=== PATIENT | female | born 1940 | race Caucasian/White ===

== ENCOUNTER 2018-03-30 06:44 | Inpatient (IN) | payer MEDICARE ==
[2018-03-30] MEDS ORDERED: NS 0.9% 1000 ML* 1,000 ML IV ONE (07:28)
[2018-03-30] MEDS ORDERED: Morphine VIAL* 4 MG/ML VIAL (1 ml vial) IV ONE (07:29)
[2018-03-30 08:04] LABS: ABS Basophils 0 10^3/ul (0-0.2); ABS Eosinophils 0 10^3/ul (0-0.6); ABS Lymphocytes 0.9 10^3/ul (1.0-4.8); ABS Monocytes 0.9 10^3/ul (0-0.8); ABS Neutrophils 7.5 10^3/ul (1.5-7.7); ABS Nucleated RBC 0 10^3/ul; Eosinophil % 0.3 % (0-6); Hematocrit 39 % (35-47); Hemoglobin 13.1 g/dl (12.0-16.0); Lymphocyte % 9.8 % (25-47); Mean Corpuscular HGB Conc 34 g/dl (31-36); Mean Corpuscular Hemoglobin 32 pg (27-31); Mean Corpuscular Volume 95 fL (80-97); Mean Platelet Volume 7.8 um3 (7.4-10.4); Nucleated Red Blood Cells % 0; Platelet Count 177 10^3/ul (150-450); Red Blood Count 4.13 10^6/ul (4.00-5.40); Red Cell Distribution Width 14 % (10.5-15); White Blood Count 9.4 10^3/ul (3.5-10.8)
[2018-03-30 08:21] LABS: INR 2.59 (0.77-1.02)
[2018-03-30 08:24] LABS: EGFR Non-African American 72.7 (>60)
[2018-03-30] MEDS ORDERED: Iohexol 350* (CONTRAST) 500 ML MDV IV ONE (08:50)
--- NOTE | 2018-03-30 09:00 | RAD ---
HISTORY: chest pain COMPARISONS: None VIEWS: 1: frontal portable view of the chest at 8:40 AM FINDINGS: LINES AND TUBES: None. CARDIOMEDIASTINAL SILHOUETTE: The cardiac silhouette is mildly enlarged. The cardiomediastinal silhouette is otherwise normal for portable technique. PLEURA: The costophrenic angles are sharp. No pleural abnormalities are noted. LUNG PARENCHYMA: The lungs are clear. ABDOMEN: The upper abdomen is clear. There is no subphrenic gas. BONES AND SOFT TISSUES: No bone or soft tissue abnormalities are noted. Surgical clips are noted in the left axilla. IMPRESSION: MILD CARDIOMEGALY
[2018-03-30] MEDS ORDERED: Nitroglycerin TAB 0.4 MG* 0.4 MG TAB SL ONE (09:06)
[2018-03-30] MEDS ORDERED: Lidocaine 2% VISCOUS* 15 ML UDC PO ONE (09:43)
[2018-03-30] MEDS ORDERED: Al Hydrox/Mg Hydrox/Simet LIQ* 30 ML UDC PO ONE (09:43)
[2018-03-30 09:45] LABS: Urine Appearance Clear; Urine Blood 2+ (Negative); Urine Color Yellow; Urine Ketones Negative (Negative); Urine Protein Negative (Negative); Urine Red Blood Cell 1+(3-5/hpf) (Absent); Urine Urobilinogen Negative (Negative); Urine White Blood Cell Trace(0-5/hpf) (Absent)
--- NOTE | 2018-03-30 09:56 | RAD ---
INDICATION: Chest pain. Short of breath. Evaluate for pulmonary embolus. COMPARISON: Chest x-ray March 30, 2018 TECHNIQUE: Axial source images were obtained from the thoracic inlet to the hemidiaphragms following administration of [address] angiographic technique was utilized. Coronal and sagittal reconstructed images were acquired. CHEST FINDINGS: Neck/thyroid: There is thyromegaly. Chest wall: There are no acute abnormalities of the bony thorax or chest wall. There is spondylitic change with kyphosis. There is left mastectomy with axillary dissection There is no supraclavicular, infraclavicular, or axillary lymphadenopathy. Lungs : There is mild bibasilar atelectasis or scarring with mild coarsening of interstitium likely reflecting chronic change. There are no endobronchial lesions. Cardiomediastinal structures: There is no CT evidence of acute pulmonary embolic disease. The heart is mildly enlarged. There is no pericardial effusion. There is no evidence of aortic aneurysm or dissection. There are atherosclerotic changes with vascular ectasia There is no mediastinal or hilar adenopathy. The esophagus appears normal. Pleura : There is a trace left-sided pleural effusion. Other: Limited views the upper abdomen show a large hiatal hernia. There are incompletely characterized low-density hepatic lesions for which nonemergent follow-up ultrasonography is recommended. There are bilateral parapelvic cysts. IMPRESSION: 1. No CT evidence of acute pulmonary embolic disease. 2. Mild chronic lung findings with trace left-sided pleural effusion. 3. Thyromegaly 4. Left mastectomy with axillary dissection 5. Mild cardiomegaly. 6. Large hiatal hernia. 7. Indeterminate hepatic lesions (see above). Parapelvic cysts.
[2018-03-30] MEDS ORDERED: Gaviscon CHEW TAB* 1 TAB PO PRN (11:12)
[2018-03-30] MEDS ORDERED: Zolpidem TAB* 5 MG PO PRN (11:12)
[2018-03-30] MEDS ORDERED: Acetaminophen TAB* 325 MG PO PRN (11:13)
[2018-03-30] MEDS ORDERED: Morphine VIAL* 4 MG/ML VIAL (1 ml vial) IV PRN (11:13)
--- NOTE | 2018-03-30 11:47 | ED ---
Alesha Guajardo Tenzin, scribed for Dejuan Wang MD on 03/30/18 at 0733 . HPI Chest Pain - HPI Summary HPI Summary: Pt is a 77 years old female BIBA complaining of chest pressure since last night at 20:00. Pt notes that the pain is located in her mid-chest and does not radiate. Pt rates the pain at 8/10 in severity during onset but currently rates it at 5/10 after taking 2 mg Morphine in the ambulance. She also complaints of SOB at baseline when she walks up the stairs and currently at the ED "pull of breathe to complete her sentence". Pt denies feeling nauseas, diaphoresis, fever , chills, dysuria and incontinence. Pt notes that prior to the onset she was eating salmon and she attributed the chest pain to her normal experience of acid reflux. She noted that she took GI meds but it didn't help alleviate her pain. She notes that she took ibuprofen last night but it didn't help either with her chest pain. Pt is taking Coumadin daily with past MHx of PE. She reports that currently she is also taking antibiotics for her bladder infection. Pt declined aspirin. - History of Current Complaint Chief Complaint: EDShortnessOfBreath Time Seen by Provider: 03/30/18 07:14 Hx Obtained From: Patient Timing: Constant Initial Severity: Severe Current Severity: Mild Pain Intensity: 5 Pain Scale Used: 0-10 Numeric Chest Pain Location: Discrete at: - Mid upper chest. Chest Pain Radiates: No - Allergy/Home Medications Allergies/Adverse Reactions: Allergies Allergy/AdvReac Type Severity Reaction Status Date / Time No Known Allergies Allergy Verified 03/30/18 06:53 Home Medications: Home Medications Famotidine TAB* [Pepcid 20 MG TAB*] 40 mg PO DAILY 03/30/18 [History Confirmed 03/30/18] Gaviscon CHEW TAB* 1 tab.chew PO Q6H PRN 03/30/18 [History Confirmed 03/30/18] Nitrofurantoin Macrocrystals* [Macrodantin 100 mg*] 100 mg PO BID 03/30/18 [ History Confirmed 03/30/18] Warfarin TAB(*) [Coumadin TAB(*)] 5 mg PO SUMOWEFRSA 03/30/18 [History Confirmed 03/30/18] Warfarin TAB(*) [Coumadin TAB(*)] 7.5 mg PO TUTH 03/30/18 [History Confirmed ] Zolpidem TAB* [Ambien TAB*] 5 mg PO BEDTIME PRN 03/30/18 [History Confirmed ] PMH/Surg Hx/FS Hx/Imm Hx Cardiovascular History: Reports: Other Cardiovascular Problems/Disorders - Hx of Paroxysmal atrial fibrillation Denies: Hx Hypertension Respiratory History: Reports: Hx Pulmonary Embolism - Cancer History Cancer Type, Location and Year: Mastectomy. Infectious Disease History: No Infectious Disease History: Denies: Traveled Outside the [place] in Last 30 Days - Family History Known Family History: Positive: Cardiac Disease - Social History Alcohol Use: Occasionally Substance Use Type: Reports: None Smoking Status (MU): Never Smoked Tobacco Review of Systems Negative: Fever, Chills, Skin Diaphoresis Positive: Chest Pain Positive: Shortness Of Breath - at baseline when she walks up the stairs. Negative: Nausea Negative: dysuria, incontinence All Other Systems Reviewed And Are Negative: Yes Physical Exam - Summary Physical Exam Summary: General: well-appearing, no pain distress Skin: warm, color reflects adequate perfusion, dry Head: normal Eyes: EOMI, RODY ENT: normal Neck: supple, nontender Respiratory: CTA, breath sounds present Cardiovascular: RRR Abdomen: soft, nontender Bowel: present Musculoskeletal: normal, strength/ROM intact Neurological: sensory/motor intact, A&O x3 Psychological: affect/mood appropriate Triage Information Reviewed: Yes Vital Signs On Initial Exam: Initial Vitals Resp BP 19 141/82 03/30/18 06:49 03/30/18 06:49 Vital Signs Reviewed: Yes Diagnostics - Vital Signs Vital Signs Temp Pulse Resp BP Pulse Ox 03/30/18 06:53 98.8 F 91 18 141/82 92 03/30/18 06:51 95 20 93 03/30/18 06:49 19 141/82 - Laboratory Lab Results: Lab Results 03/30/18 03/30/18 03/30/18 Range/Units 07:54 07:54 07:54 WBC 9.4 (3.5-10.8) 10^3/ul RBC 4.13 (4.00-5.40) 10^6/ul Hgb 13.1 (12.0-16.0) g/dl Hct 39 (35-47) % MCV 95 (80-97) fL MCH 32 H (27-31) pg MCHC 34 (31-36) g/dl RDW 14 (10.5-15) % Plt Count 177 (150-450) 10^3/ul MPV 7.8 (7.4-10.4) um3 Neut % (Auto) 80.2 (38-83) % Lymph % (Auto) 9.8 L (25-47) % [place] % (Auto) 9.3 H (0-7) % Eos % (Auto) 0.3 (0-6) % Baso % (Auto) 0.4 (0-2) % Absolute Neuts (auto) 7.5 (1.5-7.7) 10^3/ul Absolute Lymphs (auto) 0.9 L (1.0-4.8) 10^3/ul Absolute Monos (auto) 0.9 H (0-0.8) 10^3/ul Absolute Eos (auto) 0 (0-0.6) 10^3/ul Absolute Basos (auto) 0 (0-0.2) 10^3/ul Absolute Nucleated RBC 0 10^3/ul Nucleated RBC % 0 INR (Anticoag Therapy) (0.77-1.02) APTT (26.0-36.3) seconds Sodium 140 (139-145) mmol/L Potassium 4.1 (3.5-5.0) mmol/L Chloride 105 (101-111) mmol/L Carbon Dioxide 30 (22-32) mmol/L Anion Gap 5 (2-11) mmol/L BUN 18 (6-24) mg/dL Creatinine 0.77 (0.51-0.95) mg/dL Est GFR ( Amer) 93.5 (>60) Est GFR (Non-Af Amer) 72.7 (>60) BUN/Creatinine Ratio 23.4 H (8-20) Glucose 114 H (70-100) mg/dL Lactic Acid 0.9 (0.5-2.0) mmol/L Calcium 9.1 (8.6-10.3) mg/dL Magnesium 2.1 (1.9-2.7) mg/dL Total Bilirubin 0.50 (0.2-1.0) mg/dL AST 20 (13-39) U/L ALT 16 (7-52) U/L Alkaline Phosphatase 54 (34-104) U/L Total Creatine Kinase 231 H (10-223) U/L CK-MB (CK-2) 4.5 (0.6-6.3) ng/mL Troponin I 0.01 (<0.04) ng/mL C-Reactive Protein 46.98 H (< 5.00) mg/L B-Natriuretic Peptide ( - 100) pg/mL Total Protein 6.6 (6.4-8.9) g/dL Albumin 3.7 (3.2-5.2) g/dL Globulin 2.9 (2-4) g/dL Albumin/Globulin Ratio 1.3 (1-3) Lipase 24 (11.0-82.0) U/L TSH 1.70 (0.34-5.60) mcIU/mL Urine Color Urine Appearance Urine pH (5-9) Ur Specific [place] (1.010-1.030) Urine Protein (Negative) Urine Ketones (Negative) Urine Blood (Negative) Urine Nitrate (Negative) Urine Bilirubin (Negative) Urine Urobilinogen (Negative) Ur Leukocyte Esterase (Negative) Urine WBC (Auto) (Absent) Urine RBC (Auto) (Absent) Ur Squamous Epith Cells (Absent) Urine Bacteria (Absent) Urine Glucose (Negative) 03/30/18 03/30/18 03/30/18 Range/Units 07:54 07:54 09:30 WBC (3.5-10.8) 10^3/ul RBC (4.00-5.40) 10^6/ul Hgb (12.0-16.0) g/dl Hct (35-47) % MCV (80-97) fL MCH (27-31) pg MCHC (31-36) g/dl RDW (10.5-15) % Plt Count (150-450) 10^3/ul MPV (7.4-10.4) um3 Neut % (Auto) (38-83) % Lymph % (Auto) (25-47) % [place] % (Auto) (0-7) % Eos % (Auto) (0-6) % Baso % (Auto) (0-2) % Absolute Neuts (auto) (1.5-7.7) 10^3/ul Absolute Lymphs (auto) (1.0-4.8) 10^3/ul Absolute Monos (auto) (0-0.8) 10^3/ul Absolute Eos (auto) (0-0.6) 10^3/ul Absolute Basos (auto) (0-0.2) 10^3/ul Absolute Nucleated RBC 10^3/ul Nucleated RBC % INR (Anticoag Therapy) 2.59 H (0.77-1.02) APTT 39.1 H (26.0-36.3) seconds Sodium (139-145) mmol/L Potassium (3.5-5.0) mmol/L Chloride (101-111) mmol/L Carbon Dioxide (22-32) mmol/L Anion Gap (2-11) mmol/L BUN (6-24) mg/dL Creatinine (0.51-0.95) mg/dL Est GFR ( Amer) (>60) Est GFR (Non-Af Amer) (>60) BUN/Creatinine Ratio (8-20) Glucose (70-100) mg/dL Lactic Acid (0.5-2.0) mmol/L Calcium (8.6-10.3) mg/dL Magnesium (1.9-2.7) mg/dL Total Bilirubin (0.2-1.0) mg/dL AST (13-39) U/L ALT (7-52) U/L Alkaline Phosphatase (34-104) U/L Total Creatine Kinase (10-223) U/L CK-MB (CK-2) (0.6-6.3) ng/mL Troponin I (<0.04) ng/mL C-Reactive Protein (< 5.00) mg/L B-Natriuretic Peptide 60 ( - 100) pg/mL Total Protein (6.4-8.9) g/dL Albumin (3.2-5.2) g/dL Globulin (2-4) g/dL Albumin/Globulin Ratio (1-3) Lipase (11.0-82.0) U/L TSH (0.34-5.60) mcIU/mL Urine Color Yellow Urine Appearance Clear Urine pH 6.0 (5-9) Ur Specific [place] 1.010 (1.010-1.030) Urine Protein Negative (Negative) Urine Ketones Negative (Negative) Urine Blood 2+ A (Negative) Urine Nitrate Negative (Negative) Urine Bilirubin Negative (Negative) Urine Urobilinogen Negative (Negative) Ur Leukocyte Esterase Trace A (Negative) Urine WBC (Auto) Trace(0-5/hpf) (Absent) Urine RBC (Auto) 1+(3-5/hpf) A (Absent) Ur Squamous Epith Cells Present A (Absent) Urine Bacteria Absent (Absent) Urine Glucose Negative (Negative) 03/30/18 Range/Units 11:12 WBC (3.5-10.8) 10^3/ul RBC (4.00-5.40) 10^6/ul Hgb (12.0-16.0) g/dl Hct (35-47) % MCV (80-97) fL MCH (27-31) pg MCHC (31-36) g/dl RDW (10.5-15) % Plt Count (150-450) 10^3/ul MPV (7.4-10.4) um3 Neut % (Auto) (38-83) % Lymph % (Auto) (25-47) % [place] % (Auto) (0-7) % Eos % (Auto) (0-6) % Baso % (Auto) (0-2) % Absolute Neuts (auto) (1.5-7.7) 10^3/ul Absolute Lymphs (auto) (1.0-4.8) 10^3/ul Absolute Monos (auto) (0-0.8) 10^3/ul Absolute Eos (auto) (0-0.6) 10^3/ul Absolute Basos (auto) (0-0.2) 10^3/ul Absolute Nucleated RBC 10^3/ul Nucleated RBC % INR (Anticoag Therapy) (0.77-1.02) APTT (26.0-36.3) seconds Sodium (139-145) mmol/L Potassium (3.5-5.0) mmol/L Chloride (101-111) mmol/L Carbon Dioxide (22-32) mmol/L Anion Gap (2-11) mmol/L BUN (6-24) mg/dL Creatinine (0.51-0.95) mg/dL Est GFR ( Amer) (>60) Est GFR (Non-Af Amer) (>60) BUN/Creatinine Ratio (8-20) Glucose (70-100) mg/dL Lactic Acid (0.5-2.0) mmol/L Calcium (8.6-10.3) mg/dL Magnesium (1.9-2.7) mg/dL Total Bilirubin (0.2-1.0) mg/dL AST (13-39) U/L ALT (7-52) U/L Alkaline Phosphatase (34-104) U/L Total Creatine Kinase (10-223) U/L CK-MB (CK-2) (0.6-6.3) ng/mL Troponin I 0.01 (<0.04) ng/mL C-Reactive Protein (< 5.00) mg/L B-Natriuretic Peptide ( - 100) pg/mL Total Protein (6.4-8.9) g/dL Albumin (3.2-5.2) g/dL Globulin (2-4) g/dL Albumin/Globulin Ratio (1-3) Lipase (11.0-82.0) U/L TSH (0.34-5.60) mcIU/mL Urine Color Urine Appearance Urine pH (5-9) Ur Specific [place] (1.010-1.030) Urine Protein (Negative) Urine Ketones (Negative) Urine Blood (Negative) Urine Nitrate (Negative) Urine Bilirubin (Negative) Urine Urobilinogen (Negative) Ur Leukocyte Esterase (Negative) Urine WBC (Auto) (Absent) Urine RBC (Auto) (Absent) Ur Squamous Epith Cells (Absent) Urine Bacteria (Absent) Urine Glucose (Negative) Result Diagrams: 03/30/18 07:54 03/30/18 07:54 Lab Statement: Any lab studies that have been ordered have been reviewed, and results considered in the medical decision making process. - Radiology CHEST XRAY Radiology Interpretation Completed By: Radiologist - Impression: MILD CARDIOMEGALY. Dr. Wang reviewed the report. - CT CHEST/THORAX CTA CT Interpretation Completed By: Radiologist - IMPRESSION: 1. No CT evidence of acute pulmonary embolic disease. 2. Mild chronic lung findings with trace left-sided pleural effusion. 3. Thyromegaly 4. Left mastectomy with axillary dissection 5. Mild cardiomegaly. 6. Large hiatal hernia. 7. Indeterminate hepatic lesions (see above). Parapelvic cysts. Dr. Wang reviewed the report. - EKG 7:56 Cardiac Rate: NL - at 84 BPM EKG Rhythm: Sinus Rhythm Ectopy: None EKG Interpretation: Anterior ST elevation due to LVH Re-Evaluation - Re-Evaluation First Eval Change: Unchanged Comment: Pt is still having pain. Chest Pain Course/Dx - Course Course Of Treatment: ADMIT HOSPITALIST. CRITICAL CARE TIME LESS THAN 30 MINUTES - Diagnoses Provider Diagnoses: Chest pain - Provider Notifications Discussed Care Of Patient With: Kim Nicholson Time Discussed With Above Provider: 09:30 - She agreed to admit the pt. Discharge - Sign-Out/Discharge Documenting (check all that apply): Discharge/Admit/Transfer - Discharge Plan Condition: Stable Disposition: ADMITTED TO [facility] - Billing Disposition and Condition Condition: STABLE Disposition: Admitted to [facility] The documentation as recorded by the Alesha nye Tenzin accurately reflects the service I personally performed and the decisions made by me, Dejuan Wang MD.
[2018-03-30] MEDS: Aspirin EC TAB* 81 MG TAB.EC PO SCH (13:37)
--- NOTE | 2018-03-30 14:23 | HP ---
CC: Dr. Oswaldo Guo, [place], phone number [phone] HISTORY AND PHYSICAL: DATE OF ADMISSION: 03/30/18 TIME OF EVALUATION: 10:40 a.m. PRIMARY CARE PROVIDER: Dr. Oswaldo Guo. CHIEF COMPLAINT: Chest pain. HISTORY OF PRESENT ILLNESS: Ms. Diaz is a 77-year-old lady with past medical history of breast cancer, pulmonary embolism, who presented to the emergency room with complaints of chest pain. She states she was in her usual state of health until yesterday around 8 p.m., when she developed retrosternal chest pain, 5/10 intensity, with no radiation. Initially she thought this could be related to eating salmon for dinner, so she took some Gaviscon with no improvement. There are no alleviating factors. The patient states that the pain gets worse with leaning forward and with deep inspiration. She also developed urinary symptoms this past week and started taking Nitrofurantoin. She denies fever, dyspnea, cough, nausea, vomiting, dizziness, lightheadedness, or other complaints. PAST MEDICAL HISTORY: 1. Breast cancer, status post lumpectomy, radiation, and chemo in 1999 and recurrence of disease, with left mastectomy in 2016. 2. 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 The patient was switched from warfarin to aspirin and she had recurrence of pulmonary embolism in 2009, so now she is on anticoagulation for life. 3. Status post bilateral hip replacements. MEDICATION LIST: 1. Famotidine 40 mg p.o. daily. 2. Gaviscon 1 tablet chewable q.6 hours p.r.n. dyspepsia. 3. Nitrofurantoin 100 mg p.o. b.i.d. 4. Warfarin 7.5 mg p.o. on Tuesdays, and 5 mg on Sundays, Mondays, Wednesdays, Fridays, and Saturdays. 5. Zolpidem 5 mg p.o. at bedtime as needed for sleep. ALLERGIES: No known drug allergies. FAMILY HISTORY: Patient's sister has a history of CAD with 5 stents in her 60s. Grandfather and grandmother had a history of heart attack. SOCIAL HISTORY: She denies tobacco use. She drinks a glass of wine a day. She is a retired cardiac nurse and she lives in [place], [place], but she spends summertime in a cottage in [place]. REVIEW OF SYSTEMS: A 14-point review of systems was performed and all the pertinent negatives are in the HPI. PHYSICAL EXAMINATION GENERAL: The patient is an elderly lady lying in the ED stretcher, in no acute distress. VITAL SIGNS: Temperature 98.4, heart rate is 79, respiratory rate is 18, oxygen saturation is 92% on room air, blood pressure is 112/68. HEENT: Pupils are equal. Moist mucous membranes. CHEST: Breath sounds bilaterally with left base crackles and possible pleural rub. CVS: Normal S1, S2. Regular rate and rhythm with possible pericardial rub. ABDOMEN: Soft, bowel sounds are present. EXTREMITIES: No edema. NEUROLOGIC: He is alert and oriented x3. Able to mold mover all 4 extremities. LABORATORY AND IMAGING DATA: The patient had a CBC that showed WBC of 9.4, hemoglobin of 13.1, hematocrit of 39, platelets of 177 with 80% neutrophils. ESR was 46. INR is 2.59. Chemistry showed a sodium of 140, potassium of 4.1, chloride of 105, bicarb of 30, BUN of 18, creatinine of 0.77, glucose of 114, lactic acid of 0.9, calcium of 9.1. Magnesium of 2.1. LFTs are normal. CPK is slightly elevated of 231. CRP 46.98 and first troponin is negative. Chest x-ray, mild cardiomegaly. CTA of the chest showed no evidence of pulmonary embolic disease, mild chronic lung findings with trace left-sided pleural effusion, thyromegaly, left mastectomy with axillary dissection, mild cardiomegaly, large hiatal hernia, and low density hepatic lesions, for which non-emergent followup ultrasonography is recommended. EKG: Normal sinus rhythm at 84 beats per minute with ST elevations in V1, V4. ASSESSMENT AND PLAN: Ms. Diaz is a 77-year-old lady with past medical history of breast cancer, pulmonary embolism, who presented to the emergency room with complaints of chest pain. 1. Chest pain, rule out acute coronary syndrome, rule out pericarditis. The patient's chest pain is retrosternal, worse when leaning forward and with deep inspiration and I suspect this may be secondary to pleurisy including pericarditis. She will be admitted to the telemetry floor and she will have serial troponins. She does have a family history of coronary artery disease and if troponins are negative, she will undergo an exercise Myoview stress test, but I suspect with the findings on her physical examination, the ST elevations on her EKG, her elevated ESR and CRP, pericarditis may be the most likely diagnosis. She is going to receive Toradol for now to see if she experienced any relief, but depending on the findings of her echo she may benefit of NSAIDs and colchicine. 2. History of pulmonary embolism. The patient will be continued on her warfarin. 3. DVT prophylaxis: The patient has a score of 8 and she will be continued on warfarin and she will have SCDs. 4. Code status is full. TIME SPENT: Approximately 45 minutes was spent with patient interview, medical records review, physical examination to complete this admission, more than half of this time was spent [id number] with the patient in coordination of care. [id number]/CPS #: [id number]
[2018-03-30] MEDS: Ketorolac INJ* 15 MG/ML 1 ML VIAL IV PUSH PRN ×2 (15:34→23:51)
[2018-03-30] MEDS ORDERED: Warfarin TAB(*) 5 MG PO SCH (17:00)
--- NOTE | 2018-03-30 18:09 | ECHO ---
Patient: NAWAF BATES [facility] Rec#: [id number] : 1940 Date: 03/30/2018 Age: 77y Height: 167.64 cm / 66.0 in Weight: 70.31 kg / 155.0 lbs Sex: F BSA: 1.79 Room#: 439 Admit Date#: 03/30/2018 Type: Inpatient Referring: Kim Puri MD Reading: Anne Lawrence MD Devil Dog: Daja Escalante [facility] Transthoracic Echocardiogram Indication: CP BP: 112/68 HR: 81 Rhythm: NSR Findings History: Left pleural effusion, s/p left mastectomy. Technical Comments: The study quality is good. Completed at 1500. Left Ventricle: The left ventricular chamber size is normal. Global left ventricular wall motion and contractility are within normal limits. There is normal left ventricular systolic function. The estimated ejection fraction is 60-65%. Abnormal left ventricular diastolic function is observed. Left Atrium: The left atrium is moderately dilated. Right Ventricle: The right ventricular cavity size is normal. The right ventricular global systolic function is normal. Right Atrium: The right atrial cavity size is normal. Aortic Valve: The aortic valve is trileaflet. There is a trace of aortic regurgitation. There is no evidence of aortic stenosis. Mitral Valve: The mitral valve leaflets are mildly thickened. There is mild to moderate mitral regurgitation. The mitral regurgitant jet is laterally directed. There is no evidence of mitral stenosis. Tricuspid Valve: The tricuspid valve leaflets are normal. There is moderate to severe tricuspid regurgitation. The tricuspid regurgitant jet is directed toward the septum. The right ventricular systolic pressure is estimated at 56 mmHg. There is evidence of moderate to severe pulmonary hypertension. There is no tricuspid stenosis. Pulmonic Valve: The pulmonic valve appears normal. There is trace to mild pulmonic regurgitation. There is no pulmonic stenosis. Pericardium: The pericardium appears normal. Aorta: There is no dilatation of the ascending aorta. There is no dilatation of the aortic arch. There is no dilation of the aortic root. Pulmonary Artery: The main pulmonary artery appears normal. Venous: The inferior vena cava is dilated. There is an approximate 50% respiratory change in the inferior vena cava dimension. Conclusions Global left ventricular wall motion and contractility are within normal limits. The estimated ejection fraction is 60-65%. Abnormal left ventricular diastolic function is observed. The right ventricular global systolic function is normal. There is a trace of aortic regurgitation. There is mild to moderate mitral regurgitation. There is moderate to severe tricuspid regurgitation. There is evidence of moderate to severe pulmonary hypertension estimated at 56 mmHg. No prior echo to compare. Measurements Name Value Normal Range RVIDd (AP) 2D 2.9 cm (0.9 - 2.6) RVDdMajor (2D) 4 cm (2.2 - 4.4) RAd ISD 4CH 5.2 cm (3.4 - 4.9) RA (A4C)W 3.5 cm (2.9 - 4.6) IVSd (2D) 0.9 cm (0.6 - 1) LVPWd (2D) 0.7 cm (0.6 - 1) LVIDd (2D) 3.6 cm (3.6 - 5.4) LVIDs (2D) 2.4 cm - LV FS (2D) 32 % (25 - 45) Aortic Annulus 1.9 cm (1.4 - 2.6) Ao root diameter (2D) 3.1 cm (2.1 - 3.5) Ascending Ao 3.2 cm (2.1 - 3.4) Aortic arch 2.8 cm (1.8 - 3.4) Descending Ao 0.6 cm - LA dimension (AP) 2D 4.9 cm (2.3 - 3.8) LAd ISD 4CH 5.5 cm (2.9 - 5.3) LA ISD 4CH W 4 cm (2.5 - 4.5) Name Value Normal Range LA ESV SP 4CH (A/L) 57 ml - LA ESV SP 2CH (A/L) 60 ml - LA ESV BP (A/L) 60 ml - LA ESV BP (A/L) index 33.42 ml/m2 - LA ESV SP 4CH (MOD) 53 ml - LA ESV SP 2CH (MOD) 59 ml - Name Value Normal Range MV E-wave Vmax 0.8 m/sec - MV deceleration time 205 msec - MV A-wave Vmax 0.6 m/sec - MV E:A ratio 1.27 ratio - LV septal e' Vmax 0.09 m/sec - LV lateral e' Vmax 0.09 m/sec - LV E:e' septal ratio 8.89 ratio - LV E:e' lateral ratio 8.89 ratio - Name Value Normal Range AV Vmax 1.8 m/sec - AV VTI 37.9 cm - AV peak gradient 12.18 mmHg - AV mean gradient 6.69 mmHg - LVOT Vmax 1.1 m/sec - LVOT VTI 24.6 cm - LVOT peak gradient 4.76 mmHg - LVOT mean gradient 2.41 mmHg - Name Value Normal Range MR Vmax 4.1 m/sec - MR VTI 148.62 cm - Name Value Normal Range TR Vmax 3.5 m/sec - TR peak gradient 48 mmHg - RAP 8 mmHg - RVSP 56 mmHg - IVC diameter 2.3 cm - Name Value Normal Range PV Vmax 0.9 m/sec - PV peak gradient 3.6 mmHg -
[2018-03-30] MEDS: Nitrofurantoin Macrocrystals* 100 MG CAP PO SCH (21:39)
[2018-03-31 06:05] LABS: ABS Basophils 0 10^3/ul (0-0.2); ABS Eosinophils 0.1 10^3/ul (0-0.6); ABS Lymphocytes 1.8 10^3/ul (1.0-4.8); ABS Monocytes 0.8 10^3/ul (0-0.8); ABS Neutrophils 5.5 10^3/ul (1.5-7.7); ABS Nucleated RBC 0 10^3/ul; Eosinophil % 1.6 % (0-6); Hematocrit 37 % (35-47); Hemoglobin 12.4 g/dl (12.0-16.0); Lymphocyte % 22.2 % (25-47); Mean Corpuscular HGB Conc 34 g/dl (31-36); Mean Corpuscular Hemoglobin 32 pg (27-31); Mean Corpuscular Volume 95 fL (80-97); Mean Platelet Volume 8.1 um3 (7.4-10.4); Nucleated Red Blood Cells % 0; Platelet Count 155 10^3/ul (150-450); Red Blood Count 3.85 10^6/ul (4.00-5.40); Red Cell Distribution Width 14 % (10.5-15); White Blood Count 8.2 10^3/ul (3.5-10.8)
[2018-03-31 06:23] LABS: EGFR Non-African American 74.9 (>60)
[2018-03-31 06:30] LABS: INR 3.15 (0.77-1.02)
[2018-03-31] MEDS: Aspirin EC TAB* 81 MG TAB.EC PO SCH (07:56)
[2018-03-31] MEDS: Famotidine TAB* 20 MG PO SCH (10:42)
[2018-03-31] MEDS: Nitrofurantoin Macrocrystals* 100 MG CAP PO SCH ×2 (10:43→21:12)
--- NOTE | 2018-03-31 13:42 | RAD ---
INDICATION: Chest pain COMPARISON: CTA chest March 30, 2018 TECHNIQUE: A single day SPECT protocol was utilized. Rest images were acquired following the intravenous injection of 10.4 millicuries of technetium 99m tetrofosmin. Exercise stress images were acquired following the intravenous administration of 25.7 millicuries of technetium 99m tetrofosmin. The patient was exercised to a peak heart rate of 138 which is 97 of age predicted maximum. FINDINGS: There are no defects of the stress-induced or fixed nature. The cardiac chamber size is normal. There are no wall motion abnormalities. The ejection fraction is calculated at 59 percent during stress. Source images show a prominent cardiac silhouette. There is left mastectomy. There is a small left-sided effusion. IMPRESSION: NO DEFECTS OF A STRESS-INDUCED OR FIXED NATURE. ASSESSMENT: LOW-RISK Based on imaging criteria from ACC/AHA 2002 Guideline Update for the Management of Patients With Chronic Stable Angina Table 23. Noninvasive Risk Stratification.
[2018-03-31] MEDS ORDERED: Potassium Chloride LIQUID* 20 MEQ PACKET PO ONE (15:39)
--- NOTE | 2018-03-31 15:48 | PN ---
Subjective Date of Service: 03/31/18 Interval History: chest pain resolved after toradol last night and did not return. no complaints today Social History: Unchanged from Admission Past Medical History: Unchanged from Admission Objective Active Medications: Acetaminophen (Tylenol Tab*) 650 mg PO Q6H PRN PRN Reason: pain/fever Aspirin (Aspirin Ec Tab*) 81 mg PO DAILY [facility] Last Admin: 03/31/18 07:56 Dose: Not Given Famotidine (Pepcid Tab*) 40 mg PO DAILY [facility] Last Admin: 03/31/18 10:42 Dose: 40 mg Ketorolac Tromethamine (Toradol Inj*) 15 mg IV PUSH Q6H PRN PRN Reason: PAIN Last Admin: 03/30/18 23:51 Dose: 15 mg Metoprolol Tartrate (Lopressor Tab*) 12.5 mg PO Q12HR [facility] Morphine Sulfate (Morphine Vial*) 4 mg IV Q4H PRN PRN Reason: SEVERE PAIN Nitrofurantoin Macrocrystals (Macrodantin*) 100 mg PO BID [facility] Last Admin: 03/31/18 10:43 Dose: 100 mg Pharmacy Profile Note (Coumadin Daily Reminder*) 0 note FOLLOW UP 1700 [facility] Last Admin: 03/30/18 16:37 Dose: 1 note Potassium Chloride (Klor-Con Liquid*) 40 meq PO ED ONCE ONE Stop: 03/31/18 15:40 Warfarin Sodium (Coumadin Tab(*)) 7.5 mg PO TuTh@1700 [facility] PRN Reason: Protocol Warfarin Sodium (Coumadin Tab(*)) 5 mg PO SuMoWeFrSa@1700 [facility] PRN Reason: Protocol Last Admin: 03/30/18 16:34 Dose: 5 mg Zolpidem Tartrate (Ambien Tab*) 5 mg PO BEDTIME PRN PRN Reason: SLEEP Vital Signs - 8 hr 03/31/18 03/31/18 07:55 11:09 Temperature 98.3 F 98.0 F Pulse Rate 69 66 Respiratory 16 20 Rate Blood Pressure 124/64 135/71 (mmHg) O2 Sat by Pulse 93 95 Oximetry Oxygen Devices in Use Now: None Appearance: alert, comfortable, well appearing Eyes: No Scleral Icterus Neck: NL Appearance and Movements; NL JVP Respiratory: Symmetrical Chest Expansion and Respiratory Effort, Clear to Auscultation Cardiovascular: NL Sounds; No Murmurs; No JVD, RRR, No Edema, - - no rub. left mastectomy. Extremities: No Edema Skin: No Rash or Ulcers Result Diagrams: 03/31/18 05:35 03/31/18 05:35 Additional Lab and Data: Lab Results 03/30/18 03/30/18 03/30/18 Range/Units 07:54 07:54 07:54 WBC 9.4 (3.5-10.8) 10^3/ul RBC 4.13 (4.00-5.40) 10^6/ul Hgb 13.1 (12.0-16.0) g/dl Hct 39 (35-47) % MCV 95 (80-97) fL MCH 32 H (27-31) pg MCHC 34 (31-36) g/dl RDW 14 (10.5-15) % Plt Count 177 (150-450) 10^3/ul MPV 7.8 (7.4-10.4) um3 Neut % (Auto) 80.2 (38-83) % Lymph % (Auto) 9.8 L (25-47) % Graham % (Auto) 9.3 H (0-7) % Eos % (Auto) 0.3 (0-6) % Baso % (Auto) 0.4 (0-2) % Absolute Neuts (auto) 7.5 (1.5-7.7) 10^3/ul Absolute Lymphs (auto) 0.9 L (1.0-4.8) 10^3/ul Absolute Monos (auto) 0.9 H (0-0.8) 10^3/ul Absolute Eos (auto) 0 (0-0.6) 10^3/ul Absolute Basos (auto) 0 (0-0.2) 10^3/ul Absolute Nucleated RBC 0 10^3/ul Nucleated RBC % 0 INR (Anticoag Therapy) (0.77-1.02) APTT (26.0-36.3) seconds Sodium 140 (139-145) mmol/L Potassium 4.1 (3.5-5.0) mmol/L Chloride 105 (101-111) mmol/L Carbon Dioxide 30 (22-32) mmol/L Anion Gap 5 (2-11) mmol/L BUN 18 (6-24) mg/dL Creatinine 0.77 (0.51-0.95) mg/dL Est GFR ( Amer) 93.5 (>60) Est GFR (Non-Af Amer) 72.7 (>60) BUN/Creatinine Ratio 23.4 H (8-20) Glucose 114 H (70-100) mg/dL Lactic Acid 0.9 (0.5-2.0) mmol/L Calcium 9.1 (8.6-10.3) mg/dL Magnesium 2.1 (1.9-2.7) mg/dL Total Bilirubin 0.50 (0.2-1.0) mg/dL AST 20 (13-39) U/L ALT 16 (7-52) U/L Alkaline Phosphatase 54 (34-104) U/L Total Creatine Kinase 231 H (10-223) U/L CK-MB (CK-2) 4.5 (0.6-6.3) ng/mL Troponin I 0.01 (<0.04) ng/mL C-Reactive Protein 46.98 H (< 5.00) mg/L B-Natriuretic Peptide ( - 100) pg/mL Total Protein 6.6 (6.4-8.9) g/dL Albumin 3.7 (3.2-5.2) g/dL Globulin 2.9 (2-4) g/dL Albumin/Globulin Ratio 1.3 (1-3) Lipase 24 (11.0-82.0) U/L TSH 1.70 (0.34-5.60) mcIU/mL Urine Color Urine Appearance Urine pH (5-9) Ur Specific [place] (1.010-1.030) Urine Protein (Negative) Urine Ketones (Negative) Urine Blood (Negative) Urine Nitrate (Negative) Urine Bilirubin (Negative) Urine Urobilinogen (Negative) Ur Leukocyte Esterase (Negative) Urine WBC (Auto) (Absent) Urine RBC (Auto) (Absent) Ur Squamous Epith Cells (Absent) Urine Bacteria (Absent) Urine Glucose (Negative) 03/30/18 03/30/18 03/30/18 Range/Units 07:54 07:54 09:30 WBC (3.5-10.8) 10^3/ul RBC (4.00-5.40) 10^6/ul Hgb (12.0-16.0) g/dl Hct (35-47) % MCV (80-97) fL MCH (27-31) pg MCHC (31-36) g/dl RDW (10.5-15) % Plt Count (150-450) 10^3/ul MPV (7.4-10.4) um3 Neut % (Auto) (38-83) % Lymph % (Auto) (25-47) % Graham % (Auto) (0-7) % Eos % (Auto) (0-6) % Baso % (Auto) (0-2) % Absolute Neuts (auto) (1.5-7.7) 10^3/ul Absolute Lymphs (auto) (1.0-4.8) 10^3/ul Absolute Monos (auto) (0-0.8) 10^3/ul Absolute Eos (auto) (0-0.6) 10^3/ul Absolute Basos (auto) (0-0.2) 10^3/ul Absolute Nucleated RBC 10^3/ul Nucleated RBC % INR (Anticoag Therapy) 2.59 H (0.77-1.02) APTT 39.1 H (26.0-36.3) seconds Sodium (139-145) mmol/L Potassium (3.5-5.0) mmol/L Chloride (101-111) mmol/L Carbon Dioxide (22-32) mmol/L Anion Gap (2-11) mmol/L BUN (6-24) mg/dL Creatinine (0.51-0.95) mg/dL Est GFR ( Amer) (>60) Est GFR (Non-Af Amer) (>60) BUN/Creatinine Ratio (8-20) Glucose (70-100) mg/dL Lactic Acid (0.5-2.0) mmol/L Calcium (8.6-10.3) mg/dL Magnesium (1.9-2.7) mg/dL Total Bilirubin (0.2-1.0) mg/dL AST (13-39) U/L ALT (7-52) U/L Alkaline Phosphatase (34-104) U/L Total Creatine Kinase (10-223) U/L CK-MB (CK-2) (0.6-6.3) ng/mL Troponin I (<0.04) ng/mL C-Reactive Protein (< 5.00) mg/L B-Natriuretic Peptide 60 ( - 100) pg/mL Total Protein (6.4-8.9) g/dL Albumin (3.2-5.2) g/dL Globulin (2-4) g/dL Albumin/Globulin Ratio (1-3) Lipase (11.0-82.0) U/L TSH (0.34-5.60) mcIU/mL Urine Color Yellow Urine Appearance Clear Urine pH 6.0 (5-9) Ur Specific [place] 1.010 (1.010-1.030) Urine Protein Negative (Negative) Urine Ketones Negative (Negative) Urine Blood 2+ A (Negative) Urine Nitrate Negative (Negative) Urine Bilirubin Negative (Negative) Urine Urobilinogen Negative (Negative) Ur Leukocyte Esterase Trace A (Negative) Urine WBC (Auto) Trace(0-5/hpf) (Absent) Urine RBC (Auto) 1+(3-5/hpf) A (Absent) Ur Squamous Epith Cells Present A (Absent) Urine Bacteria Absent (Absent) Urine Glucose Negative (Negative) 03/30/18 Range/Units 11:12 WBC (3.5-10.8) 10^3/ul RBC (4.00-5.40) 10^6/ul Hgb (12.0-16.0) g/dl Hct (35-47) % MCV (80-97) fL MCH (27-31) pg MCHC (31-36) g/dl RDW (10.5-15) % Plt Count (150-450) 10^3/ul MPV (7.4-10.4) um3 Neut % (Auto) (38-83) % Lymph % (Auto) (25-47) % Graham % (Auto) (0-7) % Eos % (Auto) (0-6) % Baso % (Auto) (0-2) % Absolute Neuts (auto) (1.5-7.7) 10^3/ul Absolute Lymphs (auto) (1.0-4.8) 10^3/ul Absolute Monos (auto) (0-0.8) 10^3/ul Absolute Eos (auto) (0-0.6) 10^3/ul Absolute Basos (auto) (0-0.2) 10^3/ul Absolute Nucleated RBC 10^3/ul Nucleated RBC % INR (Anticoag Therapy) (0.77-1.02) APTT (26.0-36.3) seconds Sodium (139-145) mmol/L Potassium (3.5-5.0) mmol/L Chloride (101-111) mmol/L Carbon Dioxide (22-32) mmol/L Anion Gap (2-11) mmol/L BUN (6-24) mg/dL Creatinine (0.51-0.95) mg/dL Est GFR ( Amer) (>60) Est GFR (Non-Af Amer) (>60) BUN/Creatinine Ratio (8-20) Glucose (70-100) mg/dL Lactic Acid (0.5-2.0) mmol/L Calcium (8.6-10.3) mg/dL Magnesium (1.9-2.7) mg/dL Total Bilirubin (0.2-1.0) mg/dL AST (13-39) U/L ALT (7-52) U/L Alkaline Phosphatase (34-104) U/L Total Creatine Kinase (10-223) U/L CK-MB (CK-2) (0.6-6.3) ng/mL Troponin I 0.01 (<0.04) ng/mL C-Reactive Protein (< 5.00) mg/L B-Natriuretic Peptide ( - 100) pg/mL Total Protein (6.4-8.9) g/dL Albumin (3.2-5.2) g/dL Globulin (2-4) g/dL Albumin/Globulin Ratio (1-3) Lipase (11.0-82.0) U/L TSH (0.34-5.60) mcIU/mL Urine Color Urine Appearance Urine pH (5-9) Ur Specific [place] (1.010-1.030) Urine Protein (Negative) Urine Ketones (Negative) Urine Blood (Negative) Urine Nitrate (Negative) Urine Bilirubin (Negative) Urine Urobilinogen (Negative) Ur Leukocyte Esterase (Negative) Urine WBC (Auto) (Absent) Urine RBC (Auto) (Absent) Ur Squamous Epith Cells (Absent) Urine Bacteria (Absent) Urine Glucose (Negative) Assess/Plan/Problems-Billing Assessment: 77 yo female with history of breast cancer in remission and PE admitted with chest pain after a meal. - Patient Problems (1) Chest pain Current Visit: Yes Status: Acute Code(s): R07.9 - CHEST PAIN, UNSPECIFIED SNOMED Code(s): 99960369 Comment: troponins negative x 3 stress test low risk ? pericarditis given elevated inflammatory markers but not positional, no preceding viral syndrome, but did improve after toradol ? hiatal hernia as seen on CT chest appreciate cardiology input (2) NSVT (nonsustained ventricular tachycardia) Current Visit: Yes Status: Acute Code(s): I47.2 - VENTRICULAR TACHYCARDIA SNOMED Code(s): 678207225 Comment: suggests myocardial inflammation in setting of a normal LV replete K, check mag appreciate cardiology input start metoprolol (3) Pleural effusion Current Visit: Yes Status: Acute Code(s): J90 - PLEURAL EFFUSION, NOT ELSEWHERE CLASSIFIED SNOMED Code(s): 07568673 Comment: may be a result of inflammation but also concerning for malignancy given her history needs onc follow up (she wants to follow in [place]) (4) Liver nodule Current Visit: Yes Status: Acute Code(s): K76.89 - OTHER SPECIFIED DISEASES OF LIVER SNOMED Code(s): 008086476 Comment: needs ultrasound follow up (5) History of pulmonary embolism Current Visit: Yes Status: Acute Code(s): Z86.711 - PERSONAL HISTORY OF PULMONARY EMBOLISM SNOMED Code(s): 649765364 Comment: therapeutic on warfarin (6) History of breast cancer Current Visit: Yes Status: Acute Code(s): Z85.3 - PERSONAL HISTORY OF MALIGNANT NEOPLASM OF BREAST SNOMED Code(s): 978431325 Comment: reportedly in remission s/p mastectomy, radiation, chemo in 1999
[2018-03-31] MEDS ORDERED: Warfarin TAB(*) 7.5 MG PO SCH (17:00)
[2018-03-31] MEDS: Metoprolol Tartrate TAB* 25 MG PO SCH ×2 (17:18→21:12)
--- NOTE | 2018-03-31 17:45 | RAD ---
INDICATION: Carotid bruits. COMPARISON: There are no prior studies available for comparison. TECHNIQUE: Multiple grayscale, color and Doppler tracings of the common, internal and external carotid and vertebral arteries were obtained. Stenosis estimations reflect velocity criteria that it been correlated to angiographic stenosis calculations based on the distal internal carotid diameter. RIGHT CAROTID: There is mild to moderate hyperechoic plaque within the right carotid bulb and proximal internal carotid artery. The peak systolic velocity in the proximal right internal carotid artery is 91 cm/s and the maximum end-diastolic velocity is 30 cm/s. The peak systolic velocity in the distal right common carotid artery is 101 cm/s and the maximum end-diastolic velocity is 30 cm/s. The internal to common carotid artery ratio is 0.9. This would be consistent with a less than 50% stenosis. LEFT CAROTID: There is hyperechoic plaque within the left carotid bulb and proximal internal carotid artery. The peak systolic velocity in the proximal left internal carotid artery is 104 cm/s and the maximum end-diastolic velocity is 36 cm/s. The peak systolic velocity in the distal left common carotid artery is 86 cm/s and the maximum end-diastolic velocity is 27 cm/s. The internal to common carotid artery ratio is 1.2. This would be consistent with a less than 50% stenosis. There are elevated velocities in the distal internal carotid artery possibly related to tortuosity. VERTEBRALS: There is antegrade flow in both vertebral arteries. IMPRESSION: MILD TO MODERATE PLAQUE WITHIN THE CAROTID BULBS AND PROXIMAL INTERNAL CAROTID ARTERIES. NO HEMODYNAMICALLY SIGNIFICANT STENOSIS IS SEEN. CPT II Codes: 3100F
--- NOTE | 2018-03-31 19:07 | PN ---
Hospitalist Progress Note Date of Service: 03/31/18 troponin rising. patient asymptomatic. no further events on tele. discussed case with cardiology. NPO after midnight. therapeutic on warfarin, so will not use heparin. plan for cardiology to reassess in the am and repeat troponin with morning lab draws
[2018-03-31] MEDS ORDERED: Metoprolol Tartrate TAB* 25 MG PO SCH (21:00)
--- NOTE | 2018-03-31 21:26 | CONS ---
CC: Foreign Hernandez MD; Dr. Oswaldo Guo, [place], phone number [phone] * CARDIOLOGY CONSULTATION: DATE OF CONSULT: 03/31/18 CONSULTING PHYSICIAN: Monica Raza DO REASON FOR EVALUATION: Arrhythmia, chest pain. HISTORY OF PRESENT ILLNESS: This is a pleasant 77-year-old woman, who has a history of breast cancer and DVTs, on chronic anticoagulation. She was in [place], [place], but spends neumann in [place]. Two days ago, she was out on the [employer] in fairly arduous conditions and had no problem doing that for 4 hours. On the evening of 03/29/18, she went for dinner and had salmon. About 2 hours later at 8 o'clock, she noted some chest discomfort, which she felt as a pressure in her chest. She thought it was indigestion. She took some antacids without relief. She went to bed, but the pain persisted. It was somewhat worse with inspiration and worse leaning forward. At 5 a.m. the next morning, the pain had persisted and she decided to come to the emergency room. She was found to have an EKG with early repolarization and negative troponin. Because of her history of DVT and PE, she had a CAT scan performed, which was negative for pulmonary embolism, but did reveal mild chronic lung findings with left-sided pleural effusion, thyromegaly, left mastectomy with axillary dissection, mild cardiomegaly, large hiatal hernia and indeterminate hepatic lesions, and it was recommended that she have followup for those. There were atherosclerotic changes with vascular ectasia as well. She had an echocardiogram performed yesterday morning, which revealed an EF of 60% to 65%, abnormal diastolic function, trace AI, mild-to- moderate MR, [id number] TR, [id number]-[id number] pulmonary hypertension estimated 56 mm, no previous echo. She subsequently had a stress test performed, which revealed no evidence of ischemia or infarct and felt to be low risk. She did achieve a peak heart rate of 138, which is 97% of maximum predicted and she achieved approximately 4 minutes on a [place]. She was about to be discharged today and while standing holding her gown she developed a run of 12-beat wide complex tachycardia followed by a couplet. She was asymptomatic at that time. She denies any previous palpitations, syncope, near syncope. No strokes or mini strokes. She denies any fevers, chills, or sweats. She does report she had a UTI a week or so ago and has been on Macrodantin. She denies orthopnea. No peripheral edema. No syncope or near syncope. No strokes or mini strokes. No nausea, vomiting, or diarrhea. No viral illnesses. PAST MEDICAL HISTORY: She denies diabetes, hypertension, hyperlipidemia. She does have a history of left breast lumpectomy in approximately 1999, treated with chemo and Herceptin. She underwent hip replacement in 2001 and developed a pulmonary embolism. 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 She has been chronically anticoagulated since then. \ Large hiatal hernia by CT 03/2018. PSH: She had mastectomy a year ago on the left for recurrent cancer. She had bilateral hip replacements in 2001 and again in 2008. She also had laminectomies in the remote past. MEDICATIONS: As an outpatient include: 1. Famotidine 40 mg a day. 2. Gaviscon 1 q.6 p.r.n. 3. Nitrofurantoin 100 mg b.i.d. 4. Warfarin. 5. Ambien 5 mg at bedtime as needed for sleep. ALLERGIES: She has no known drug allergies. FAMILY HISTORY: Includes a sister who had coronary artery disease with 5 stents in her 60s. Grandfather and grandmother have history of heart attacks. SOCIAL HISTORY: She has 4 children. She is accompanied by her long-term partner. She is a retired nurse. She drinks 1 cup of coffee a day and has 1 glass of wine a night. ROS x10 negative except as above. PHYSICAL EXAM: She is a well-developed, well-nourished female, in no apparent distress. Temperature is 98, yesterday at midnight it was 100.2; blood pressure 135/71; pulse of 66; O2 sat is 95% on room air. No significant JVD. Carotids 2+ with left carotid bruit. No cervical adenopathy or thyromegaly. Cardiac Exam: S1, S2 with a 2/6 holosystolic murmur at the left lower sternal border and apex. Chest was clear except for soft rales at the left base. No CVAT. Status post left mastectomy. Abdomen: Bowel sounds present, nontender. No hepatosplenomegaly. Femoral pulses intact with a right femoral bruit. Distal pulses intact and no edema. Motor strength 5/5 bilaterally. Deep tendon reflexes 2/4 in the upper extremities, unable to obtain in the lower extremities. Skin turgor was normal. DIAGNOSTIC STUDIES/LAB DATA: Labs include elevated CRP from 03/30/18 at 47. Potassium of 3.7 today, low sodium at 138, BUN 18, creatinine 0.75, elevated BUN /creatinine ratio. Troponin of 0.01 on 03/30/18 at 11 o'clock and 0.03 at 1 o' clock yesterday. BNP was normal at 60. White count 8.2, hemoglobin of 12.4, hematocrit of 37, and platelet count of 155. Sed rate of 46. EKG from 03/30/18 revealed sinus rhythm with possible early repolarization I and aVL and V2 through V6, possible old inferior infarct. No significant change on the subsequent one. IMPRESSION AND PLAN: My impression is that Ms. Diaz has been admitted for chest pain of unclear etiology. She also has a history of breast cancer and deep venous thromboses. Her CT scan is significant for left small pleural effusion and atherosclerotic disease and a large hiatal hernia. She also has on exam a carotid bruit, a femoral bruit, and she has a history of hiatal hernia. There are multiple potential etiologies of her pain including inflammatory process or neoplastic process given the elevated markers, the low- grade temperature and the left pleural effusion. Although I explained that she most likely has atherosclerotic disease; however, it is not clear that her chest pain is ischemic especially in light of the low troponins and low-risk stress test. She did have an arrhythmia of unclear etiology. Ther tele strip introduces the possibility of ventricular tachycardia or atrial arrhythmia with aberrancy. I cannot exclude it is related to ischemia or myocarditis or pericarditis. She also has a significant hiatal hernia, which may be responsible for her symptoms. I discussed at length with her and Dr. Raza my findings. I explained that further investigation is warranted, although further data will need to be accumulated in order to come to some conclusions about the etiology of her symptoms, arrhythmia and pleural effusion. For the time being, I would recommend the following: Continue using anti-inflammatories sparingly as needed for control of her pain. She seemed to have done better with Toradol rather than morphine in the ER. longterm, I would avoid nonsteroidal anti-inflammatories. These will potentially increase her risk of bleeding and coronary events. I suggest that she use acetaminophen or aspirin preferentially to control her pain. I would try to maintain her potassium over 4 and she is being supplemented. Would start a low dose beta-mason perhaps metoprolol 12.5 or 25 mg b.i.d. and monitor her for heart rate and blood pressure response and see if she has recurrent arrhythmias. I would recommend obtaining an event monitor as an outpatient to further evaluate for recurrent ventricular arrhythmias. She is to avoid vigorous exertion while she is undergoing evaluation and potential recovery from pericarditis. I did suggest she have repeat evaluation for the hepatic lesions and the pleural effusion in light of her history of breast cancer. I offered her referral to a local oncologist and she would like to follow up with her oncologist back in [place], Dr. Garg. If she has continued unexplained arrhythmias then a consultation with steam clothes press operator could be considered. She is to avoid caffeine and dehydration. She is to have carotid Doppler to evaluate her carotid bruit. If indeed she has significant atherosclerosis, I would consider adding a low dose baby aspirin to her regimen and a statin to decrease her risk for cardiovascular morbidity and mortality in the future. We did discuss the possibility of a cardiac catheterization. However, given the low-risk stress test and the atypical nature of the symptoms and lack of ischemia by troponins or noninvasive testing. I suggest that we defer that for now. The risks and benefits of cardiac catheterization were reviewed. Again, I explained that testing so far does not exclude atherosclerotic disease, but I would suggest a trial of medical therapy on the initial basis. [id number]/[facility] #: [id number] GEORGE
[2018-04-01 05:35] LABS: ABS Basophils 0.1 10^3/ul (0-0.2); ABS Eosinophils 0.2 10^3/ul (0-0.6); ABS Lymphocytes 1.7 10^3/ul (1.0-4.8); ABS Monocytes 0.8 10^3/ul (0-0.8); ABS Neutrophils 4.9 10^3/ul (1.5-7.7); ABS Nucleated RBC 0 10^3/ul; Hematocrit 38 % (35-47); Lymphocyte % 22.3 % (25-47); Mean Corpuscular HGB Conc 34 g/dl (31-36); Mean Corpuscular Hemoglobin 32 pg (27-31); Mean Corpuscular Volume 95 fL (80-97); Nucleated Red Blood Cells % 0; Platelet Count 195 10^3/ul (150-450); Red Blood Count 4.04 10^6/ul (4.00-5.40); Red Cell Distribution Width 14 % (10.5-15); White Blood Count 7.7 10^3/ul (3.5-10.8)
[2018-04-01 05:54] LABS: EGFR Non-African American 66.7 (>60)
[2018-04-01] MEDS: Metoprolol Tartrate TAB* 25 MG PO SCH ×2 (09:17→21:15)
[2018-04-01] MEDS: Famotidine TAB* 20 MG PO SCH (09:17)
[2018-04-01] MEDS: Nitrofurantoin Macrocrystals* 100 MG CAP PO SCH ×2 (09:18→21:15)
[2018-04-01] MEDS: Aspirin EC TAB* 81 MG TAB.EC PO SCH ×2 (09:19→13:11)
[2018-04-01] MEDS ORDERED: Atorvastatin* 80 MG TAB PO ONE (12:54)
[2018-04-01 16:10] LABS: INR 2.6 (0.77-1.02)
--- NOTE | 2018-04-01 18:11 | CONSULT ---
Consult Consult: Ms. Diaz is a 77 year old admitted with chest pain of unclear etiology; there was a concern for possible pericariditis; she does have elevated inflammatory markers and a positional quality to her pain with a possible pleural rub hear on admission. Will evaluate for possible autoimmune etiologies.
[2018-04-01] MEDS ORDERED: Simethicone TAB* 80 MG TAB.CHEW PO PRN (19:16)
--- NOTE | 2018-04-01 19:54 | PN ---
Hospitalist Progress Note Date of Service: 04/01/18 Pt seen and examined. Meds and labs reviewed. ROS: Denied REECE/dizziness, F/C, N/V, CP, SOB, increased cough, sputum production , abd pain, diarrhea, constipation, dysuria, myalgias, arthralgias, throat pain , and new skin lesions. The rest of the 14 point ROS are unremarkable. PHYSICAL EXAM: GEN APPEARANCE: Awake, not in acute distress HEENT: NC/AT, PERRLA, moist oral mucosa, (-) throat erythema NECK: Soft, supple, (-) cervical LAD, (-)JVD HEART: S1S2 WNL, RRR, No MRG CHEST: CTA, BL, GAE, No W/R/R ABD: Soft, ND/NT, NABS 4x Q EXT: No C/C/E SKIN: Warm to touch PSYCH: No active psychosis, hallucinations, depression, SI/HI ASSESSMENT AND PLAN: #Retrosternal CP: -Likely due to Pericarditis +/- myocarditis -Please see detailed consultation note from Dr. Hernandez -Current plan is to: D/C/Hold Coumadin, start ASA, place on statins, follow troponins (all ordered), and to start IV heparin when INR is subtherapeutic -For possible cardiac cath on Wednesday to evaluate for any significant CAD lesions that may have caused troponins to elevate in the setting of initial set of 3 troponins being normal and stress test which was low probability despite vessel calcifications seen on imaging -Continue intermittent PRN Toradol -Consulted Rheumatology to evaluate for any autoimmune process due to elevated CRPswill defer -Spoke with Dr. Nance this AM for possible viral cause of pericarditis +/ - myocarditis and will await official recommendations #NSVT: -Continue metoprolol -Continue watchful waiting #Pleural effusion, mild: -Could be consistent with both inflammatory process and or cardiac process -Please see above #Liver nodules: -Will defer with PCP to F/U as outpatient with repeat U/S #History of PE: -Please see above plan for anticoagulation above #DVTp: -As discussed #Dispo: -As above
[2018-04-01] MEDS: Heparin VIAL(*) 5000 UNITS/ML VIAL (FIVE THOUSAND) SUBCUT SCH (21:16)
--- NOTE | 2018-04-01 21:32 | CONS ---
CONSULTATION REPORT: DATE OF CONSULT: 04/01/18 REQUESTING PHYSICIAN: Dr. Perez. IMPRESSION: 1. Substernal chest pain which was positional, some J-point elevation in anterior leads of EKG. Troponin peaked at 4, down to 1.8 today. Elevated inflammatory markers, low-grade fever. Differential diagnosis includes mild pericarditis. Her age is a little bit atypical in the rapid resolution; however , still a consideration. If it is of viral myopericarditis, testing for viral etiology is of low yield. 2. Pulmonary hypertension. 3. 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 4. Breast cancer status post lumpectomy, radiation and chemotherapy in 2000 and then recurrence, status post left mastectomy in 2017. RECOMMENDATIONS: Anti-inflammatories. If return of chest pain, further Cardiology evaluation is pending to rule out ischemic component. 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 She is visiting the area for the summer from [place] and she has been very active and then all of a sudden on the she developed substernal chest pain, worse with leaning forward. No cough. She had a low-grade fever. At that point, she had been on Macrodantin for 2 to 3 days for urinary tract infection. She had brought that prescription with her from [place] because she feels every times she comes to the area she gets E. coli urinary tract infection. Here, her initial troponin was 0, it climbed to 2 and then 5, down to 1.8 today. Her C-reactive protein was 47 on the , it is 130 today. She had a low-grade fever here a night ago, but none since. Her appetite has been okay. She has had no cough or shortness of breath. She was doing lapse on the floor today, felt tired, but did not have shortness of breath or any onset of chest pain. She had a CT of the chest that showed no pulmonary embolus. There is no infiltrate. There is a tiny left-sided pleural effusion. She had a transthoracic echocardiogram that showed pulmonary hypertension, ejection fraction 60% to 65%, diastolic dysfunction, moderate mitral regurgitation. She has never had anything like this before. She did not recall recent prodrome of fevers, chills, sweats, or achiness. She spent sometime out doors here. She has had no rash. PAST MEDICAL HISTORY: 1. Osteoarthritis, status post bilateral hip arthroplasties. 2. Breast cancer, treated with lumpectomy, radiation and chemotherapy in 2000 and then with recurrence in 2017 treated with mastectomy. 3. History of pulmonary embolus on lifelong anticoagulation. MEDICATIONS: 1. Tylenol. 2. Aspirin. 3. Lipitor. 4. Famotidine. 5. Heparin subcutaneous injection. 6. Ketoralac as needed. 7. Metoprolol. 8. Potassium. 9. Ambien. 10. Nitrofurantoin. ALLERGIES: No known drug allergies. FAMILY HISTORY: Sister with coronary artery disease. Grandparents with coronary artery disease. SOCIAL HISTORY: She lives in [place]. She is a retired nurse. She is [place] [employer] the summer. REVIEW OF SYSTEMS: All negative to a 14-point review of systems except as noted above. PHYSICAL EXAM: Vital Signs: Temperature 37, heart rate 70, respiratory rate 12 , blood pressure 134/77, oxygen saturation 95% on room air. General: She is awake, not in distress. Neurologic: She is oriented x3, follows all commands. HEENT: There is no conjunctival hemorrhage. Oropharynx without lesions. Neck : Supple without mass. Lymph Nodes: There is no cervical, supraclavicular, inguinal, axillary, or epitrochlear lymphadenopathy. Heart is regular rate and rhythm without murmurs, rubs, or gallops. Lungs are clear to auscultation bilaterally. Abdomen: Soft, nontender, and nondistended. There are bowel sounds present. Skin: There is no rash or splinter hemorrhage. Musculoskeletal : No spinous tenderness or chest tenderness to palpation. There is no joint synovitis. DIAGNOSTIC STUDIES/LAB DATA: Creatinine 0.8, white blood cell count 7, hemoglobin 13, platelets 195, MCV 95, ALT 16. Urinalysis, trace leukocyte esterase. Please see impressions and recommendations outlined above. Thanks for asking me to see Ms. Diaz in consultation. [id number]/[facility] #: [id number] [facility]
--- NOTE | 2018-04-01 22:55 | CONS ---
CONSULTATION REPORT: DATE OF CONSULT: 04/01/18 CONSULTING PHYSICIAN: Dr. Murillo. REASON FOR CONSULT: Evaluate for inflammatory cause of pericarditis. HISTORY OF PRESENT ILLNESS: Ms. Diaz is a 77-year-old woman with a history of breast cancer, who is admitted with chest wall pain that occurred shortly after eating a salmon dinner with an alcoholic beverage. Her pain was refractory at home and did not alleviate itself after several hours of lying down. So, she came to the emergency room. A workup here at [facility] revealed an elevated troponin and signs and symptoms concerning for underlying pericarditis. I have been asked to evaluate for rheumatologic etiology. Although she is currently asymptomatic, she is waiting to have a possible coronary artery catheterization to evaluate for ischemic cardiac disease. Of note, she also has a history of breast cancer, pulmonary embolism, and she has complications of lymphedema on the left shoulder region from her prior history of breast cancer with surgery, chemo, and lumpectomy. She had been in her usual state of health until around 8 p.m. the night prior to admission when she developed retrosternal chest wall pain with significant intensity, but no radiation with tightness. Initially, it was felt to be due to eating salmon and she took Gaviscon with no improvement. There were no alleviating factors. The pain was, however, worse with leaning forward with deep inspiration. The pain gradually resolved and in fact, she is asymptomatic currently. However, she had several runs of V-tach in the hospital as well as an elevated troponin, so she is going to have a cardiac catheterization. The workup revealed an elevated sedimentation rate concerning for an inflammatory process. She also developed urinary symptoms this past week and had been on nitrofurantoin, but has not been exposed to any sick contacts. She does not have any pets and not had any recent travel. She denied any fever, dyspnea, cough, nausea, vomiting, dizziness, lightheadedness, or other complaints. She has had some mild sinus allergies related to the cottonweed, which occurs when she is visiting this part of the country. PAST MEDICAL HISTORY: Includes: 1. Breast cancer, status post lumpectomy, radiation, and chemo in 1999 with recurrence of disease with left mastectomy in 2017. 2. 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 She was switched from warfarin to aspirin and had recurrent pulmonary embolism in 2009. So, she is on anticoagulation for life. 3. Status post bilateral hip replacements. PAST SURGICAL HISTORY: Includes hip replacements. MEDICATIONS: Include: 1. Famotidine 40 mg daily. 2. Gaviscon 1 tablet chewable every 6 hours as needed. 3. Nitrofurantoin 100 mg b.i.d. 4. Warfarin 7.5 mg. 5. Zolpidem. ALLERGIES: Include no known drug allergies. FAMILY HISTORY: Notable for rheumatoid arthritis in 1 sister, who has poorly controlled disease. Also, history of coronary artery disease in her other sister with 5 stents in her 60s. Grandfather and grandmother had a history of heart disease. SOCIAL HISTORY: She denies any tobacco use. She drinks a glass of wine a day. 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 REVIEW OF SYSTEMS: General: She has mild fatigue. HEENT: Denies dry mouth and dry eyes. Cardiac: Denies chest wall pain currently. Pulmonary: Denies shortness of breath. Abdomen: No GI symptoms. Denies nausea or vomiting. Genitourinary: Recent UTI, but no recent blood in the urine or stool. GI: Denies any blood in the stool. Denies GI symptoms. Endocrine: No glandular swelling. Hematologic: No bruising or bleeding. Musculoskeletal: Mild osteoarthritis. Other 14-point review of systems was reviewed and was otherwise negative. She has on further query noticed some mild increased stiffness in her upper extremities over the last couple of weeks, but she denies any headaches, nausea, and she denies any jaw pain. She does have some left shoulder restriction related to lymphedema, but her right shoulder and hips are doing well. PHYSICAL EXAM: She is a pleasant woman, in no acute distress. Temperature is initially 98.4, heart rate 79, respiratory rate of 18, O2 sat 98% on room air, blood pressure 112/68. HEENT Exam: Pupils are equal, round, and reactive to light and accommodate. Moist mucous membranes. No adenopathy. Lungs were clear to auscultation bilaterally with minimal left base crackles with no pleural rub. Cardiovascular exam revealed a normal S1 and S2, regular rate and rhythm. No S3 or S4. Point of maximal impulse nondisplaced. Abdomen: Soft, nontender, nondistended with no organomegaly. Extremities: No edema. Musculoskeletal: Mild hip restriction, which is chronic. She has mild left shoulder restriction with lymphedema in the left upper extremity. She has mild osteoarthritic deformities in the DIP joints of her hands, but no synovitis. She had no tenderness of her joints. Neurologic: Nonfocal. Motor strength 5/ 5 in the upper and lower extremities. DIAGNOSTIC STUDIES/LAB DATA: She had a CBC that showed a white count of 9.4, hemoglobin of 13.1, platelets of 177,000. Sed rate was initially 46. INR of 2.59. Chloride of 105, bicarb of 30, BUN 18, creatinine 0.77, glucose of 114, lactic acid of 0.9, calcium of 9.1, magnesium of 2.1. LFTs normal. CPK was 231. CRP was 46.9. First troponin was negative, although she did peak at a troponin of 4. Chest x-ray: Mild cardiomegaly. CTA of the chest showed no evidence of pulmonary embolic disease. She had mild chronic lung findings with trace left-sided pleural effusions and thyromegaly. She had a left mastectomy with an axillary dissection, mild cardiomegaly, large hiatal hernia with low-density hepatic lesions for which nonemergent followup ultrasound is recommended. EKG showed normal sinus rhythm at 84 beats per minute with an ST elevation in V1 and V4. ASSESSMENT AND PLAN: Ms. Diaz is a 77-year-old woman with a past medical history of breast cancer, pulmonary emboli, who presented with complaints of chest wall pain; imaging studies were notable for a pleural effusion, which may reflect a reactive process. Recurrent signs and symptoms are concerning for possible pericarditis, which clinically seems to have already resolved. She may have an underlying autoimmune cause of her pericarditis. However, more likely etiology is some sort of viral process. Also, consider a paraneoplastic process given her history of breast cancer. I would recommend checking an CHASTITY, JOIE level, and Sjogren's antibodies, and given her history of sinus disease, check an ANCA. Her beneficial response to Toradol is consistent with an underlying inflammatory process, although I agree with cardiology that anti inflammatory meds should be given very cautiously given her heart disease. I will continue to follow daily. We can treat her symptomatically as needed. If she has refractory symptoms of pericarditis, consider a trial of colchicine and/ or corticosteroids; however, she is clijnically asymptomatic at present and I did not hear a pleural rub. We will continue to follow. [id number]/[facility] #: [id number] [facility]ITAL[facility]
[2018-04-02 05:30] LABS: ABS Basophils 0.1 10^3/ul (0-0.2); ABS Eosinophils 0.3 10^3/ul (0-0.6); ABS Lymphocytes 1.6 10^3/ul (1.0-4.8); ABS Monocytes 0.7 10^3/ul (0-0.8); ABS Neutrophils 4.4 10^3/ul (1.5-7.7); ABS Nucleated RBC 0 10^3/ul; Eosinophil % 3.8 % (0-6); Hematocrit 40 % (35-47); Hemoglobin 13.3 g/dl (12.0-16.0); Lymphocyte % 22.6 % (25-47); Mean Corpuscular HGB Conc 33 g/dl (31-36); Mean Corpuscular Hemoglobin 31 pg (27-31); Mean Corpuscular Volume 94 fL (80-97); Mean Platelet Volume 7.9 um3 (7.4-10.4); Nucleated Red Blood Cells % 0.1; Platelet Count 205 10^3/ul (150-450); Red Blood Count 4.25 10^6/ul (4.00-5.40); Red Cell Distribution Width 14 % (10.5-15); White Blood Count 6.9 10^3/ul (3.5-10.8)
[2018-04-02 05:36] LABS: INR 2.44 (0.77-1.02)
[2018-04-02 05:55] LABS: EGFR Non-African American 64.9 (>60)
[2018-04-02] MEDS: Famotidine TAB* 20 MG PO SCH (08:24)
[2018-04-02] MEDS: Aspirin EC TAB* 81 MG TAB.EC PO SCH (08:25)
[2018-04-02] MEDS: Heparin VIAL(*) 5000 UNITS/ML VIAL (FIVE THOUSAND) SUBCUT SCH ×2 (08:25→21:45)
[2018-04-02] MEDS: Nitrofurantoin Macrocrystals* 100 MG CAP PO SCH ×2 (08:25→21:45)
[2018-04-02] MEDS: Metoprolol Tartrate TAB* 25 MG PO SCH ×2 (08:27→21:45)
[2018-04-02] MEDS ORDERED: Phytonadione Oral Solution* 5 MG/25 ML UDC PO ONE (11:15)
--- NOTE | 2018-04-02 16:18 | PN ---
Subjective Date of Service: 04/02/18 Interval History: Pt seen and examined. Meds and labs reviewed. No O/N issues. ROS: Denied REECE/dizziness, F/C, N/V, CP, SOB, increased cough, sputum production , abd pain, diarrhea, constipation, dysuria, myalgias, arthralgias, throat pain , and new skin lesions. The rest of the 14 point ROS are unremarkable. PHYSICAL EXAM: GEN APPEARANCE: Awake, not in acute distress HEENT: NC/AT, PERRLA, moist oral mucosa, (-) throat erythema NECK: Soft, supple, (-) cervical LAD, (-)JVD HEART: S1S2 WNL, RRR, No MRG CHEST: CTA, BL, GAE, No W/R/R ABD: Soft, ND/NT, NABS 4x Q EXT: No C/C/E SKIN: Warm to touch PSYCH: No active psychosis, hallucinations, depression, SI/HI Social History: Unchanged from Admission Past Medical History: Unchanged from Admission Objective Active Medications: Acetaminophen (Tylenol Tab*) 650 mg PO Q6H PRN PRN Reason: pain/fever Aspirin (Aspirin Ec Tab*) 81 mg PO DAILY COUNTS INCLUDE 234 BEDS AT THE [facility] Last Admin: 04/02/18 08:25 Dose: 81 mg Atorvastatin Calcium (Lipitor*) 40 mg PO 2100 COUNTS INCLUDE 234 BEDS AT THE [facility] Famotidine (Pepcid Tab*) 40 mg PO DAILY COUNTS INCLUDE 234 BEDS AT THE [facility] Last Admin: 04/02/18 08:24 Dose: 40 mg Heparin Sodium (Porcine) (Heparin Vial(*)) 5,000 units SUBCUT Q12HR COUNTS INCLUDE 234 BEDS AT THE [facility] Last Admin: 04/02/18 08:25 Dose: 5,000 units Sodium Chloride (Ns 0.9% 1000 Ml*) 1,000 mls @ 100 mls/hr IV .per rate COUNTS INCLUDE 234 BEDS AT THE [facility] Ketorolac Tromethamine (Toradol Inj*) 15 mg IV PUSH Q6H PRN PRN Reason: PAIN Last Admin: 03/30/18 23:51 Dose: 15 mg Metoprolol Tartrate (Lopressor Tab*) 12.5 mg PO Q12HR COUNTS INCLUDE 234 BEDS AT THE [facility] Last Admin: 04/02/18 08:27 Dose: 12.5 mg Morphine Sulfate (Morphine Vial*) 4 mg IV Q4H PRN PRN Reason: SEVERE PAIN Nitrofurantoin Macrocrystals (Macrodantin*) 100 mg PO BID COUNTS INCLUDE 234 BEDS AT THE [facility] Last Admin: 04/02/18 08:25 Dose: 100 mg Simethicone (Mylicon Tab*) 80 mg PO Q6H PRN PRN Reason: Bloating Last Admin: 04/01/18 19:57 Dose: 80 mg Zolpidem Tartrate (Ambien Tab*) 5 mg PO BEDTIME PRN PRN Reason: SLEEP Last Admin: 04/01/18 00:01 Dose: 5 mg Vital Signs - 8 hr 04/02/18 11:28 Temperature 98.2 F Pulse Rate 70 Respiratory 16 Rate Blood Pressure 106/67 (mmHg) O2 Sat by Pulse 96 Oximetry Oxygen Devices in Use Now: None Result Diagrams: 04/02/18 05:02 04/02/18 05:02 Additional Lab and Data: Lab Results 03/30/18 03/30/18 03/30/18 Range/Units 07:54 07:54 07:54 WBC 9.4 (3.5-10.8) 10^3/ul RBC 4.13 (4.00-5.40) 10^6/ul Hgb 13.1 (12.0-16.0) g/dl Hct 39 (35-47) % MCV 95 (80-97) fL MCH 32 H (27-31) pg MCHC 34 (31-36) g/dl RDW 14 (10.5-15) % Plt Count 177 (150-450) 10^3/ul MPV 7.8 (7.4-10.4) um3 Neut % (Auto) 80.2 (38-83) % Lymph % (Auto) 9.8 L (25-47) % Independence % (Auto) 9.3 H (0-7) % Eos % (Auto) 0.3 (0-6) % Baso % (Auto) 0.4 (0-2) % Absolute Neuts (auto) 7.5 (1.5-7.7) 10^3/ul Absolute Lymphs (auto) 0.9 L (1.0-4.8) 10^3/ul Absolute Monos (auto) 0.9 H (0-0.8) 10^3/ul Absolute Eos (auto) 0 (0-0.6) 10^3/ul Absolute Basos (auto) 0 (0-0.2) 10^3/ul Absolute Nucleated RBC 0 10^3/ul Nucleated RBC % 0 INR (Anticoag Therapy) (0.77-1.02) APTT (26.0-36.3) seconds Sodium 140 (139-145) mmol/L Potassium 4.1 (3.5-5.0) mmol/L Chloride 105 (101-111) mmol/L Carbon Dioxide 30 (22-32) mmol/L Anion Gap 5 (2-11) mmol/L BUN 18 (6-24) mg/dL Creatinine 0.77 (0.51-0.95) mg/dL Est GFR ( Amer) 93.5 (>60) Est GFR (Non-Af Amer) 72.7 (>60) BUN/Creatinine Ratio 23.4 H (8-20) Glucose 114 H (70-100) mg/dL Lactic Acid 0.9 (0.5-2.0) mmol/L Calcium 9.1 (8.6-10.3) mg/dL Magnesium 2.1 (1.9-2.7) mg/dL Total Bilirubin 0.50 (0.2-1.0) mg/dL AST 20 (13-39) U/L ALT 16 (7-52) U/L Alkaline Phosphatase 54 (34-104) U/L Total Creatine Kinase 231 H (10-223) U/L CK-MB (CK-2) 4.5 (0.6-6.3) ng/mL Troponin I 0.01 (<0.04) ng/mL C-Reactive Protein 46.98 H (< 5.00) mg/L B-Natriuretic Peptide ( - 100) pg/mL Total Protein 6.6 (6.4-8.9) g/dL Albumin 3.7 (3.2-5.2) g/dL Globulin 2.9 (2-4) g/dL Albumin/Globulin Ratio 1.3 (1-3) Lipase 24 (11.0-82.0) U/L TSH 1.70 (0.34-5.60) mcIU/mL Urine Color Urine Appearance Urine pH (5-9) Ur Specific Cotter (1.010-1.030) Urine Protein (Negative) Urine Ketones (Negative) Urine Blood (Negative) Urine Nitrate (Negative) Urine Bilirubin (Negative) Urine Urobilinogen (Negative) Ur Leukocyte Esterase (Negative) Urine WBC (Auto) (Absent) Urine RBC (Auto) (Absent) Ur Squamous Epith Cells (Absent) Urine Bacteria (Absent) Urine Glucose (Negative) 03/30/18 03/30/18 03/30/18 Range/Units 07:54 07:54 09:30 WBC (3.5-10.8) 10^3/ul RBC (4.00-5.40) 10^6/ul Hgb (12.0-16.0) g/dl Hct (35-47) % MCV (80-97) fL MCH (27-31) pg MCHC (31-36) g/dl RDW (10.5-15) % Plt Count (150-450) 10^3/ul MPV (7.4-10.4) um3 Neut % (Auto) (38-83) % Lymph % (Auto) (25-47) % Independence % (Auto) (0-7) % Eos % (Auto) (0-6) % Baso % (Auto) (0-2) % Absolute Neuts (auto) (1.5-7.7) 10^3/ul Absolute Lymphs (auto) (1.0-4.8) 10^3/ul Absolute Monos (auto) (0-0.8) 10^3/ul Absolute Eos (auto) (0-0.6) 10^3/ul Absolute Basos (auto) (0-0.2) 10^3/ul Absolute Nucleated RBC 10^3/ul Nucleated RBC % INR (Anticoag Therapy) 2.59 H (0.77-1.02) APTT 39.1 H (26.0-36.3) seconds Sodium (139-145) mmol/L Potassium (3.5-5.0) mmol/L Chloride (101-111) mmol/L Carbon Dioxide (22-32) mmol/L Anion Gap (2-11) mmol/L BUN (6-24) mg/dL Creatinine (0.51-0.95) mg/dL Est GFR ( Amer) (>60) Est GFR (Non-Af Amer) (>60) BUN/Creatinine Ratio (8-20) Glucose (70-100) mg/dL Lactic Acid (0.5-2.0) mmol/L Calcium (8.6-10.3) mg/dL Magnesium (1.9-2.7) mg/dL Total Bilirubin (0.2-1.0) mg/dL AST (13-39) U/L ALT (7-52) U/L Alkaline Phosphatase (34-104) U/L Total Creatine Kinase (10-223) U/L CK-MB (CK-2) (0.6-6.3) ng/mL Troponin I (<0.04) ng/mL C-Reactive Protein (< 5.00) mg/L B-Natriuretic Peptide 60 ( - 100) pg/mL Total Protein (6.4-8.9) g/dL Albumin (3.2-5.2) g/dL Globulin (2-4) g/dL Albumin/Globulin Ratio (1-3) Lipase (11.0-82.0) U/L TSH (0.34-5.60) mcIU/mL Urine Color Yellow Urine Appearance Clear Urine pH 6.0 (5-9) Ur Specific Cotter 1.010 (1.010-1.030) Urine Protein Negative (Negative) Urine Ketones Negative (Negative) Urine Blood 2+ A (Negative) Urine Nitrate Negative (Negative) Urine Bilirubin Negative (Negative) Urine Urobilinogen Negative (Negative) Ur Leukocyte Esterase Trace A (Negative) Urine WBC (Auto) Trace(0-5/hpf) (Absent) Urine RBC (Auto) 1+(3-5/hpf) A (Absent) Ur Squamous Epith Cells Present A (Absent) Urine Bacteria Absent (Absent) Urine Glucose Negative (Negative) 03/30/18 Range/Units 11:12 WBC (3.5-10.8) 10^3/ul RBC (4.00-5.40) 10^6/ul Hgb (12.0-16.0) g/dl Hct (35-47) % MCV (80-97) fL MCH (27-31) pg MCHC (31-36) g/dl RDW (10.5-15) % Plt Count (150-450) 10^3/ul MPV (7.4-10.4) um3 Neut % (Auto) (38-83) % Lymph % (Auto) (25-47) % Independence % (Auto) (0-7) % Eos % (Auto) (0-6) % Baso % (Auto) (0-2) % Absolute Neuts (auto) (1.5-7.7) 10^3/ul Absolute Lymphs (auto) (1.0-4.8) 10^3/ul Absolute Monos (auto) (0-0.8) 10^3/ul Absolute Eos (auto) (0-0.6) 10^3/ul Absolute Basos (auto) (0-0.2) 10^3/ul Absolute Nucleated RBC 10^3/ul Nucleated RBC % INR (Anticoag Therapy) (0.77-1.02) APTT (26.0-36.3) seconds Sodium (139-145) mmol/L Potassium (3.5-5.0) mmol/L Chloride (101-111) mmol/L Carbon Dioxide (22-32) mmol/L Anion Gap (2-11) mmol/L BUN (6-24) mg/dL Creatinine (0.51-0.95) mg/dL Est GFR ( Amer) (>60) Est GFR (Non-Af Amer) (>60) BUN/Creatinine Ratio (8-20) Glucose (70-100) mg/dL Lactic Acid (0.5-2.0) mmol/L Calcium (8.6-10.3) mg/dL Magnesium (1.9-2.7) mg/dL Total Bilirubin (0.2-1.0) mg/dL AST (13-39) U/L ALT (7-52) U/L Alkaline Phosphatase (34-104) U/L Total Creatine Kinase (10-223) U/L CK-MB (CK-2) (0.6-6.3) ng/mL Troponin I 0.01 (<0.04) ng/mL C-Reactive Protein (< 5.00) mg/L B-Natriuretic Peptide ( - 100) pg/mL Total Protein (6.4-8.9) g/dL Albumin (3.2-5.2) g/dL Globulin (2-4) g/dL Albumin/Globulin Ratio (1-3) Lipase (11.0-82.0) U/L TSH (0.34-5.60) mcIU/mL Urine Color Urine Appearance Urine pH (5-9) Ur Specific Cotter (1.010-1.030) Urine Protein (Negative) Urine Ketones (Negative) Urine Blood (Negative) Urine Nitrate (Negative) Urine Bilirubin (Negative) Urine Urobilinogen (Negative) Ur Leukocyte Esterase (Negative) Urine WBC (Auto) (Absent) Urine RBC (Auto) (Absent) Ur Squamous Epith Cells (Absent) Urine Bacteria (Absent) Urine Glucose (Negative) Assess/Plan/Problems-Billing - Patient Problems (1) Chest pain Current Visit: Yes Status: Acute Code(s): R07.9 - CHEST PAIN, UNSPECIFIED SNOMED Code(s): 56736736 Comment: #Retrosternal CP: -Pt mentions that she began feeling unwell only after an hour or so of stress test---given calcifications seen on CT as well as ID impression that her clinical course does not appear to be consistent with infectious pericarditis/ myocarditis, it is possible that she may have significant CAD despite low probability stress -Please see detailed consultation note from Dr. Hernandez -Appreciate Dr. Evans input and per my discussion with him, it appears that the rapid clinical improvement is not suggestive of viral or infectious pericarditis, although still part of the differential -Current plan is to: D/C/Hold Coumadin, start ASA, place on statins, follow troponins (all ordered), and to start IV heparin when INR is subtherapeutic -For possible cardiac cath on Wednesday to evaluate for any significant CAD lesions that may have caused troponins to elevate in the setting of initial set of 3 troponins being normal and stress test which was low probability despite vessel calcifications seen on imaging -Continue intermittent PRN Toradol -Immune markers sent by Dr. King appreciated and will continue to follow to rule out inflammatory/autoimmune causes -Spoke with Dr. Nance this AM for possible viral cause of pericarditis +/- myocarditis and will await official recommendations (2) NSVT (nonsustained ventricular tachycardia) Current Visit: Yes Status: Acute Code(s): I47.2 - VENTRICULAR TACHYCARDIA SNOMED Code(s): 555424294 Comment: -Continue metoprolol -Continue watchful waiting (3) Pleural effusion Current Visit: Yes Status: Acute Code(s): J90 - PLEURAL EFFUSION, NOT ELSEWHERE CLASSIFIED SNOMED Code(s): 67263607 Comment: #Pleural effusion, mild: -Could be consistent with both inflammatory process and or cardiac process -Please see above (4) Liver nodule Current Visit: Yes Status: Acute Code(s): K76.89 - OTHER SPECIFIED DISEASES OF LIVER SNOMED Code(s): 511471213 Comment: -Will defer with PCP to F/U as outpatient with repeat U/S (5) Pulmonary embolism Current Visit: Yes Status: Acute Code(s): I26.99 - OTHER PULMONARY EMBOLISM WITHOUT ACUTE COR PULMONALE SNOMED Code(s): 15255963 Comment: #History of PE: -Please see above plan for anticoagulation above (6) DVT prophylaxis Current Visit: Yes Status: Acute Code(s): PJY6743 - SNOMED Code(s): 792850749 Comment: -As discussed Status and Disposition: -As above
[2018-04-02] MEDS: Atorvastatin* 40 MG TAB PO SCH (21:45)
[2018-04-03 07:19] LABS: Hematocrit 39 % (35-47); Hemoglobin 13.5 g/dl (12.0-16.0); Mean Corpuscular HGB Conc 35 g/dl (31-36); Mean Corpuscular Hemoglobin 33 pg (27-31); Mean Corpuscular Volume 94 fL (80-97); Mean Platelet Volume 7.7 um3 (7.4-10.4); Platelet Count 213 10^3/ul (150-450); Red Blood Count 4.16 10^6/ul (4.00-5.40); Red Cell Distribution Width 13 % (10.5-15); White Blood Count 5.4 10^3/ul (3.5-10.8)
[2018-04-03 07:28] LABS: INR 1.22 (0.77-1.02)
[2018-04-03 07:36] LABS: EGFR Non-African American 70.6 (>60)
[2018-04-03] MEDS: Heparin VIAL(*) 5000 UNITS/ML VIAL (FIVE THOUSAND) SUBCUT SCH (08:49)
[2018-04-03] MEDS: Aspirin EC TAB* 81 MG TAB.EC PO SCH (08:50)
[2018-04-03] MEDS: Metoprolol Tartrate TAB* 25 MG PO SCH ×2 (08:50→20:51)
[2018-04-03] MEDS: Famotidine TAB* 20 MG PO SCH (08:50)
[2018-04-03] MEDS: Nitrofurantoin Macrocrystals* 100 MG CAP PO SCH ×2 (08:50→20:52)
[2018-04-03] MEDS ORDERED: Enoxaparin(*) 80 MG/0.8 ML SYR SUBCUT ONE (13:00)
--- NOTE | 2018-04-03 16:16 | PN ---
Subjective Date of Service: 04/03/18 Interval History: Pt seen and examined. Meds and labs reviewed. ROS: Denied REECE/dizziness, F/C, N/V, CP, SOB, increased cough, sputum production , abd pain, diarrhea, constipation, dysuria, myalgias, arthralgias, throat pain , and new skin lesions. The rest of the 14 point ROS are unremarkable. PHYSICAL EXAM: GEN APPEARANCE: Awake, not in acute distress HEENT: NC/AT, PERRLA, moist oral mucosa, (-) throat erythema NECK: Soft, supple, (-) cervical LAD, (-)JVD HEART: S1S2 WNL, RRR, No MRG CHEST: CTA, BL, GAE, No W/R/R ABD: Soft, ND/NT, NABS 4x Q EXT: No C/C/E SKIN: Warm to touch PSYCH: No active psychosis, hallucinations, depression, SI/HI Social History: Unchanged from Admission Past Medical History: Unchanged from Admission Objective Active Medications: Acetaminophen (Tylenol Tab*) 650 mg PO Q6H PRN PRN Reason: pain/fever Aspirin (Aspirin Ec Tab*) 81 mg PO DAILY [facility] Last Admin: 04/03/18 08:50 Dose: 81 mg Atorvastatin Calcium (Lipitor*) 40 mg PO 2100 [facility] Last Admin: 04/02/18 21:45 Dose: 40 mg Famotidine (Pepcid Tab*) 40 mg PO DAILY [facility] Last Admin: 04/03/18 08:50 Dose: 40 mg Sodium Chloride (Ns 0.9% 1000 Ml*) 1,000 mls @ 100 mls/hr IV .per rate [facility] Ketorolac Tromethamine (Toradol Inj*) 15 mg IV PUSH Q6H PRN PRN Reason: PAIN Last Admin: 03/30/18 23:51 Dose: 15 mg Metoprolol Tartrate (Lopressor Tab*) 12.5 mg PO Q12HR [facility] Last Admin: 04/03/18 08:50 Dose: 12.5 mg Morphine Sulfate (Morphine Vial*) 4 mg IV Q4H PRN PRN Reason: SEVERE PAIN Nitrofurantoin Macrocrystals (Macrodantin*) 100 mg PO BID [facility] Last Admin: 04/03/18 08:50 Dose: 100 mg Simethicone (Mylicon Tab*) 80 mg PO Q6H PRN PRN Reason: Bloating Last Admin: 04/01/18 19:57 Dose: 80 mg Zolpidem Tartrate (Ambien Tab*) 5 mg PO BEDTIME PRN PRN Reason: SLEEP Last Admin: 04/01/18 00:01 Dose: 5 mg Vital Signs - 8 hr 04/03/18 04/03/18 04/03/18 11:16 15:31 15:50 Temperature 98.2 F 97.4 F Pulse Rate 72 72 Respiratory 16 16 Rate Blood Pressure 103/66 93/56 120/60 (mmHg) O2 Sat by Pulse 93 94 Oximetry Oxygen Devices in Use Now: None Result Diagrams: 04/03/18 07:07 04/03/18 07:07 Additional Lab and Data: Lab Results 03/30/18 03/30/18 03/30/18 Range/Units 07:54 07:54 07:54 WBC 9.4 (3.5-10.8) 10^3/ul RBC 4.13 (4.00-5.40) 10^6/ul Hgb 13.1 (12.0-16.0) g/dl Hct 39 (35-47) % MCV 95 (80-97) fL MCH 32 H (27-31) pg MCHC 34 (31-36) g/dl RDW 14 (10.5-15) % Plt Count 177 (150-450) 10^3/ul MPV 7.8 (7.4-10.4) um3 Neut % (Auto) 80.2 (38-83) % Lymph % (Auto) 9.8 L (25-47) % [place] % (Auto) 9.3 H (0-7) % Eos % (Auto) 0.3 (0-6) % Baso % (Auto) 0.4 (0-2) % Absolute Neuts (auto) 7.5 (1.5-7.7) 10^3/ul Absolute Lymphs (auto) 0.9 L (1.0-4.8) 10^3/ul Absolute Monos (auto) 0.9 H (0-0.8) 10^3/ul Absolute Eos (auto) 0 (0-0.6) 10^3/ul Absolute Basos (auto) 0 (0-0.2) 10^3/ul Absolute Nucleated RBC 0 10^3/ul Nucleated RBC % 0 INR (Anticoag Therapy) (0.77-1.02) APTT (26.0-36.3) seconds Sodium 140 (139-145) mmol/L Potassium 4.1 (3.5-5.0) mmol/L Chloride 105 (101-111) mmol/L Carbon Dioxide 30 (22-32) mmol/L Anion Gap 5 (2-11) mmol/L BUN 18 (6-24) mg/dL Creatinine 0.77 (0.51-0.95) mg/dL Est GFR ( Amer) 93.5 (>60) Est GFR (Non-Af Amer) 72.7 (>60) BUN/Creatinine Ratio 23.4 H (8-20) Glucose 114 H (70-100) mg/dL Lactic Acid 0.9 (0.5-2.0) mmol/L Calcium 9.1 (8.6-10.3) mg/dL Magnesium 2.1 (1.9-2.7) mg/dL Total Bilirubin 0.50 (0.2-1.0) mg/dL AST 20 (13-39) U/L ALT 16 (7-52) U/L Alkaline Phosphatase 54 (34-104) U/L Total Creatine Kinase 231 H (10-223) U/L CK-MB (CK-2) 4.5 (0.6-6.3) ng/mL Troponin I 0.01 (<0.04) ng/mL C-Reactive Protein 46.98 H (< 5.00) mg/L B-Natriuretic Peptide ( - 100) pg/mL Total Protein 6.6 (6.4-8.9) g/dL Albumin 3.7 (3.2-5.2) g/dL Globulin 2.9 (2-4) g/dL Albumin/Globulin Ratio 1.3 (1-3) Lipase 24 (11.0-82.0) U/L TSH 1.70 (0.34-5.60) mcIU/mL Urine Color Urine Appearance Urine pH (5-9) Ur Specific [place] (1.010-1.030) Urine Protein (Negative) Urine Ketones (Negative) Urine Blood (Negative) Urine Nitrate (Negative) Urine Bilirubin (Negative) Urine Urobilinogen (Negative) Ur Leukocyte Esterase (Negative) Urine WBC (Auto) (Absent) Urine RBC (Auto) (Absent) Ur Squamous Epith Cells (Absent) Urine Bacteria (Absent) Urine Glucose (Negative) 03/30/18 03/30/18 03/30/18 Range/Units 07:54 07:54 09:30 WBC (3.5-10.8) 10^3/ul RBC (4.00-5.40) 10^6/ul Hgb (12.0-16.0) g/dl Hct (35-47) % MCV (80-97) fL MCH (27-31) pg MCHC (31-36) g/dl RDW (10.5-15) % Plt Count (150-450) 10^3/ul MPV (7.4-10.4) um3 Neut % (Auto) (38-83) % Lymph % (Auto) (25-47) % [place] % (Auto) (0-7) % Eos % (Auto) (0-6) % Baso % (Auto) (0-2) % Absolute Neuts (auto) (1.5-7.7) 10^3/ul Absolute Lymphs (auto) (1.0-4.8) 10^3/ul Absolute Monos (auto) (0-0.8) 10^3/ul Absolute Eos (auto) (0-0.6) 10^3/ul Absolute Basos (auto) (0-0.2) 10^3/ul Absolute Nucleated RBC 10^3/ul Nucleated RBC % INR (Anticoag Therapy) 2.59 H (0.77-1.02) APTT 39.1 H (26.0-36.3) seconds Sodium (139-145) mmol/L Potassium (3.5-5.0) mmol/L Chloride (101-111) mmol/L Carbon Dioxide (22-32) mmol/L Anion Gap (2-11) mmol/L BUN (6-24) mg/dL Creatinine (0.51-0.95) mg/dL Est GFR ( Amer) (>60) Est GFR (Non-Af Amer) (>60) BUN/Creatinine Ratio (8-20) Glucose (70-100) mg/dL Lactic Acid (0.5-2.0) mmol/L Calcium (8.6-10.3) mg/dL Magnesium (1.9-2.7) mg/dL Total Bilirubin (0.2-1.0) mg/dL AST (13-39) U/L ALT (7-52) U/L Alkaline Phosphatase (34-104) U/L Total Creatine Kinase (10-223) U/L CK-MB (CK-2) (0.6-6.3) ng/mL Troponin I (<0.04) ng/mL C-Reactive Protein (< 5.00) mg/L B-Natriuretic Peptide 60 ( - 100) pg/mL Total Protein (6.4-8.9) g/dL Albumin (3.2-5.2) g/dL Globulin (2-4) g/dL Albumin/Globulin Ratio (1-3) Lipase (11.0-82.0) U/L TSH (0.34-5.60) mcIU/mL Urine Color Yellow Urine Appearance Clear Urine pH 6.0 (5-9) Ur Specific [place] 1.010 (1.010-1.030) Urine Protein Negative (Negative) Urine Ketones Negative (Negative) Urine Blood 2+ A (Negative) Urine Nitrate Negative (Negative) Urine Bilirubin Negative (Negative) Urine Urobilinogen Negative (Negative) Ur Leukocyte Esterase Trace A (Negative) Urine WBC (Auto) Trace(0-5/hpf) (Absent) Urine RBC (Auto) 1+(3-5/hpf) A (Absent) Ur Squamous Epith Cells Present A (Absent) Urine Bacteria Absent (Absent) Urine Glucose Negative (Negative) 03/30/18 Range/Units 11:12 WBC (3.5-10.8) 10^3/ul RBC (4.00-5.40) 10^6/ul Hgb (12.0-16.0) g/dl Hct (35-47) % MCV (80-97) fL MCH (27-31) pg MCHC (31-36) g/dl RDW (10.5-15) % Plt Count (150-450) 10^3/ul MPV (7.4-10.4) um3 Neut % (Auto) (38-83) % Lymph % (Auto) (25-47) % [place] % (Auto) (0-7) % Eos % (Auto) (0-6) % Baso % (Auto) (0-2) % Absolute Neuts (auto) (1.5-7.7) 10^3/ul Absolute Lymphs (auto) (1.0-4.8) 10^3/ul Absolute Monos (auto) (0-0.8) 10^3/ul Absolute Eos (auto) (0-0.6) 10^3/ul Absolute Basos (auto) (0-0.2) 10^3/ul Absolute Nucleated RBC 10^3/ul Nucleated RBC % INR (Anticoag Therapy) (0.77-1.02) APTT (26.0-36.3) seconds Sodium (139-145) mmol/L Potassium (3.5-5.0) mmol/L Chloride (101-111) mmol/L Carbon Dioxide (22-32) mmol/L Anion Gap (2-11) mmol/L BUN (6-24) mg/dL Creatinine (0.51-0.95) mg/dL Est GFR ( Amer) (>60) Est GFR (Non-Af Amer) (>60) BUN/Creatinine Ratio (8-20) Glucose (70-100) mg/dL Lactic Acid (0.5-2.0) mmol/L Calcium (8.6-10.3) mg/dL Magnesium (1.9-2.7) mg/dL Total Bilirubin (0.2-1.0) mg/dL AST (13-39) U/L ALT (7-52) U/L Alkaline Phosphatase (34-104) U/L Total Creatine Kinase (10-223) U/L CK-MB (CK-2) (0.6-6.3) ng/mL Troponin I 0.01 (<0.04) ng/mL C-Reactive Protein (< 5.00) mg/L B-Natriuretic Peptide ( - 100) pg/mL Total Protein (6.4-8.9) g/dL Albumin (3.2-5.2) g/dL Globulin (2-4) g/dL Albumin/Globulin Ratio (1-3) Lipase (11.0-82.0) U/L TSH (0.34-5.60) mcIU/mL Urine Color Urine Appearance Urine pH (5-9) Ur Specific [place] (1.010-1.030) Urine Protein (Negative) Urine Ketones (Negative) Urine Blood (Negative) Urine Nitrate (Negative) Urine Bilirubin (Negative) Urine Urobilinogen (Negative) Ur Leukocyte Esterase (Negative) Urine WBC (Auto) (Absent) Urine RBC (Auto) (Absent) Ur Squamous Epith Cells (Absent) Urine Bacteria (Absent) Urine Glucose (Negative) Assess/Plan/Problems-Billing - Patient Problems (1) Chest pain Current Visit: Yes Status: Acute Code(s): R07.9 - CHEST PAIN, UNSPECIFIED SNOMED Code(s): 64279558 Comment: -Pt mentions that she began feeling unwell only after an hour or so of stress test---given calcifications seen on CT as well as ID impression that her clinical course does not appear to be consistent with infectious pericarditis/ myocarditis, it is possible that she may have significant CAD despite low probability stress -Please see detailed consultation note from Dr. Hernandez -Appreciate Dr. Evans input and per my discussion with him, it appears that the rapid clinical improvement is not suggestive of viral or infectious pericarditis, although still part of the differential -Current plan is to: D/C/Hold Coumadin, start ASA, place on statins, follow troponins (all ordered), and to start IV heparin when INR is subtherapeutic -For possible cardiac cath tomorrow to evaluate for any significant CAD lesions that may have caused troponins to elevate in the setting of initial set of 3 troponins being normal and stress test which was low probability despite vessel calcifications seen on imaging -Continue intermittent PRN Toradol -Immune markers sent by Dr. King appreciated and will continue to follow to rule out inflammatory/autoimmune causes (2) NSVT (nonsustained ventricular tachycardia) Current Visit: Yes Status: Acute Code(s): I47.2 - VENTRICULAR TACHYCARDIA SNOMED Code(s): 544810853 Comment: -Continue metoprolol -Continue watchful waiting (3) Pleural effusion Current Visit: Yes Status: Acute Code(s): J90 - PLEURAL EFFUSION, NOT ELSEWHERE CLASSIFIED SNOMED Code(s): 98493136 Comment: #Pleural effusion, mild: -Could be consistent with both inflammatory process and or cardiac process -Please see above (4) Liver nodule Current Visit: Yes Status: Acute Code(s): K76.89 - OTHER SPECIFIED DISEASES OF LIVER SNOMED Code(s): 579049736 Comment: -Will defer with PCP to F/U as outpatient with repeat U/S (5) Pulmonary embolism Current Visit: Yes Status: Acute Code(s): I26.99 - OTHER PULMONARY EMBOLISM WITHOUT ACUTE COR PULMONALE SNOMED Code(s): 52185705 Comment: #History of PE: -Please see above plan for anticoagulation above (6) DVT prophylaxis Current Visit: Yes Status: Acute Code(s): NFJ7279 - SNOMED Code(s): 151818731 Comment: -As discussed Status and Disposition: -For cardiac cath tomorrow
[2018-04-03] MEDS: Atorvastatin* 40 MG TAB PO SCH (20:51)
[2018-04-04 04:51] LABS: INR 1.04 (0.77-1.02)
[2018-04-04] MEDS ORDERED: NS 0.9% 1000 ML* 1,000 ML IV SCH ×2 (07:00→10:15)
[2018-04-04] MEDS: Nitrofurantoin Macrocrystals* 100 MG CAP PO SCH ×2 (07:42→20:41)
[2018-04-04] MEDS: Famotidine TAB* 20 MG PO SCH (07:42)
[2018-04-04] MEDS: Metoprolol Tartrate TAB* 25 MG PO SCH ×2 (07:42→20:42)
[2018-04-04] MEDS: Aspirin EC TAB* 81 MG TAB.EC PO SCH (07:42)
[2018-04-04] MEDS ORDERED: Heparin(*) 1000 UNIT/ML 10 ML VIAL CATH LAB IV ONE (08:44)
[2018-04-04] MEDS ORDERED: VERAPAMIL 2.5 MG/ML 2 ML VIAL ** 5 mg/2 ml ONE (08:44)
[2018-04-04] MEDS ORDERED: Heparin 2 UNITS/ML IVPREMIX* 2,000 ML IV ONE (08:45)
[2018-04-04] MEDS ORDERED: Iohexol 350 (CONTRAST) 200 ML MDV IV ONE (08:45)
[2018-04-04] MEDS ORDERED: Lidocaine 1% INJ* 10 MG/ML 30 ML SDV ONE (08:45)
[2018-04-04] MEDS ORDERED: nitroGLYCERIN DRIP* 25,000 MCG/250 ML BTL ONE (08:45)
[2018-04-04] MEDS ORDERED: Midazolam* 1 MG/ML 10 ML VIAL (10 MG) ONE (09:10)
[2018-04-04] MEDS ORDERED: fentaNYL* 50 MCG/ML 2 ML VIAL (100 MCG VIAL) ONE (09:10)
[2018-04-04] MEDS ORDERED: Heparin 2 UNITS/ML IVPREMIX* 1,000 ML IV ONE (09:35)
[2018-04-04] MEDS: Atorvastatin* 40 MG TAB PO SCH (20:41)
--- NOTE | 2018-04-04 21:53 | PN ---
Subjective Date of Service: 04/04/18 Interval History: Pt seen and examined. Meds and labs reviewed. S/P Cardiac Cath and was found to have diffuse CAD, no PCI performed. Please see Dr. Hoyos post-cath note for location of coronary lesions found. ROS: Denied REECE/dizziness, F/C, N/V, CP, SOB, increased cough, sputum production , abd pain, diarrhea, constipation, dysuria, myalgias, arthralgias, throat pain , and new skin lesions. The rest of the 14 point ROS are unremarkable. PHYSICAL EXAM: GEN APPEARANCE: Awake, not in acute distress HEENT: NC/AT, PERRLA, moist oral mucosa, (-) throat erythema NECK: Soft, supple, (-) cervical LAD, (-)JVD HEART: S1S2 WNL, RRR, No MRG CHEST: CTA, BL, GAE, No W/R/R ABD: Soft, ND/NT, NABS 4x Q EXT: No C/C/E SKIN: Warm to touch PSYCH: No active psychosis, hallucinations, depression, SI/HI Social History: Unchanged from Admission Past Medical History: Unchanged from Admission Objective Active Medications: Acetaminophen (Tylenol Tab*) 650 mg PO Q6H PRN PRN Reason: pain/fever Aspirin (Aspirin Ec Tab*) 81 mg PO DAILY [facility] Last Admin: 04/04/18 07:42 Dose: 81 mg Atorvastatin Calcium (Lipitor*) 40 mg PO 2100 [facility] Last Admin: 04/04/18 20:41 Dose: 40 mg Famotidine (Pepcid Tab*) 40 mg PO DAILY [facility] Last Admin: 04/04/18 07:42 Dose: 40 mg Sodium Chloride (Ns 0.9% 1000 Ml*) 1,000 mls @ 100 mls/hr IV .per rate [facility] Last Admin: 04/04/18 07:41 Dose: 100 mls/hr Metoprolol Tartrate (Lopressor Tab*) 12.5 mg PO Q12HR [facility] Last Admin: 04/04/18 20:42 Dose: 12.5 mg Morphine Sulfate (Morphine Vial*) 4 mg IV Q4H PRN PRN Reason: SEVERE PAIN Nitrofurantoin Macrocrystals (Macrodantin*) 100 mg PO BID [facility] Last Admin: 04/04/18 20:41 Dose: 100 mg Simethicone (Mylicon Tab*) 80 mg PO Q6H PRN PRN Reason: Bloating Last Admin: 04/01/18 19:57 Dose: 80 mg Zolpidem Tartrate (Ambien Tab*) 5 mg PO BEDTIME PRN PRN Reason: SLEEP Last Admin: 04/01/18 00:01 Dose: 5 mg Vital Signs - 8 hr 04/04/18 04/04/18 04/04/18 14:00 14:01 14:12 Temperature Pulse Rate 66 68 Respiratory Rate Blood Pressure 129/66 123/55 (mmHg) O2 Sat by Pulse 97 95 Oximetry 04/04/18 04/04/18 04/04/18 14:15 14:30 14:45 Temperature Pulse Rate 69 70 72 Respiratory Rate Blood Pressure (mmHg) O2 Sat by Pulse 97 94 92 Oximetry 04/04/18 04/04/18 04/04/18 15:00 15:01 15:15 Temperature Pulse Rate 66 66 69 Respiratory Rate Blood Pressure 106/60 (mmHg) O2 Sat by Pulse 94 93 91 Oximetry 04/04/18 04/04/18 04/04/18 15:30 15:31 15:45 Temperature 98.0 F Pulse Rate 60 73 Respiratory Rate Blood Pressure (mmHg) O2 Sat by Pulse 98 91 Oximetry 04/04/18 04/04/18 04/04/18 16:00 19:05 19:28 Temperature 98.4 F Pulse Rate 69 76 Respiratory 16 16 16 Rate Blood Pressure 111/59 (mmHg) O2 Sat by Pulse 94 93 Oximetry Oxygen Devices in Use Now: None Result Diagrams: 04/03/18 07:07 04/03/18 07:07 Additional Lab and Data: Lab Results 03/30/18 03/30/18 03/30/18 Range/Units 07:54 07:54 07:54 WBC 9.4 (3.5-10.8) 10^3/ul RBC 4.13 (4.00-5.40) 10^6/ul Hgb 13.1 (12.0-16.0) g/dl Hct 39 (35-47) % MCV 95 (80-97) fL MCH 32 H (27-31) pg MCHC 34 (31-36) g/dl RDW 14 (10.5-15) % Plt Count 177 (150-450) 10^3/ul MPV 7.8 (7.4-10.4) um3 Neut % (Auto) 80.2 (38-83) % Lymph % (Auto) 9.8 L (25-47) % [place] % (Auto) 9.3 H (0-7) % Eos % (Auto) 0.3 (0-6) % Baso % (Auto) 0.4 (0-2) % Absolute Neuts (auto) 7.5 (1.5-7.7) 10^3/ul Absolute Lymphs (auto) 0.9 L (1.0-4.8) 10^3/ul Absolute Monos (auto) 0.9 H (0-0.8) 10^3/ul Absolute Eos (auto) 0 (0-0.6) 10^3/ul Absolute Basos (auto) 0 (0-0.2) 10^3/ul Absolute Nucleated RBC 0 10^3/ul Nucleated RBC % 0 INR (Anticoag Therapy) (0.77-1.02) APTT (26.0-36.3) seconds Sodium 140 (139-145) mmol/L Potassium 4.1 (3.5-5.0) mmol/L Chloride 105 (101-111) mmol/L Carbon Dioxide 30 (22-32) mmol/L Anion Gap 5 (2-11) mmol/L BUN 18 (6-24) mg/dL Creatinine 0.77 (0.51-0.95) mg/dL Est GFR ( Amer) 93.5 (>60) Est GFR (Non-Af Amer) 72.7 (>60) BUN/Creatinine Ratio 23.4 H (8-20) Glucose 114 H (70-100) mg/dL Lactic Acid 0.9 (0.5-2.0) mmol/L Calcium 9.1 (8.6-10.3) mg/dL Magnesium 2.1 (1.9-2.7) mg/dL Total Bilirubin 0.50 (0.2-1.0) mg/dL AST 20 (13-39) U/L ALT 16 (7-52) U/L Alkaline Phosphatase 54 (34-104) U/L Total Creatine Kinase 231 H (10-223) U/L CK-MB (CK-2) 4.5 (0.6-6.3) ng/mL Troponin I 0.01 (<0.04) ng/mL C-Reactive Protein 46.98 H (< 5.00) mg/L B-Natriuretic Peptide ( - 100) pg/mL Total Protein 6.6 (6.4-8.9) g/dL Albumin 3.7 (3.2-5.2) g/dL Globulin 2.9 (2-4) g/dL Albumin/Globulin Ratio 1.3 (1-3) Lipase 24 (11.0-82.0) U/L TSH 1.70 (0.34-5.60) mcIU/mL Urine Color Urine Appearance Urine pH (5-9) Ur Specific [place] (1.010-1.030) Urine Protein (Negative) Urine Ketones (Negative) Urine Blood (Negative) Urine Nitrate (Negative) Urine Bilirubin (Negative) Urine Urobilinogen (Negative) Ur Leukocyte Esterase (Negative) Urine WBC (Auto) (Absent) Urine RBC (Auto) (Absent) Ur Squamous Epith Cells (Absent) Urine Bacteria (Absent) Urine Glucose (Negative) 03/30/18 03/30/18 03/30/18 Range/Units 07:54 07:54 09:30 WBC (3.5-10.8) 10^3/ul RBC (4.00-5.40) 10^6/ul Hgb (12.0-16.0) g/dl Hct (35-47) % MCV (80-97) fL MCH (27-31) pg MCHC (31-36) g/dl RDW (10.5-15) % Plt Count (150-450) 10^3/ul MPV (7.4-10.4) um3 Neut % (Auto) (38-83) % Lymph % (Auto) (25-47) % [place] % (Auto) (0-7) % Eos % (Auto) (0-6) % Baso % (Auto) (0-2) % Absolute Neuts (auto) (1.5-7.7) 10^3/ul Absolute Lymphs (auto) (1.0-4.8) 10^3/ul Absolute Monos (auto) (0-0.8) 10^3/ul Absolute Eos (auto) (0-0.6) 10^3/ul Absolute Basos (auto) (0-0.2) 10^3/ul Absolute Nucleated RBC 10^3/ul Nucleated RBC % INR (Anticoag Therapy) 2.59 H (0.77-1.02) APTT 39.1 H (26.0-36.3) seconds Sodium (139-145) mmol/L Potassium (3.5-5.0) mmol/L Chloride (101-111) mmol/L Carbon Dioxide (22-32) mmol/L Anion Gap (2-11) mmol/L BUN (6-24) mg/dL Creatinine (0.51-0.95) mg/dL Est GFR ( Amer) (>60) Est GFR (Non-Af Amer) (>60) BUN/Creatinine Ratio (8-20) Glucose (70-100) mg/dL Lactic Acid (0.5-2.0) mmol/L Calcium (8.6-10.3) mg/dL Magnesium (1.9-2.7) mg/dL Total Bilirubin (0.2-1.0) mg/dL AST (13-39) U/L ALT (7-52) U/L Alkaline Phosphatase (34-104) U/L Total Creatine Kinase (10-223) U/L CK-MB (CK-2) (0.6-6.3) ng/mL Troponin I (<0.04) ng/mL C-Reactive Protein (< 5.00) mg/L B-Natriuretic Peptide 60 ( - 100) pg/mL Total Protein (6.4-8.9) g/dL Albumin (3.2-5.2) g/dL Globulin (2-4) g/dL Albumin/Globulin Ratio (1-3) Lipase (11.0-82.0) U/L TSH (0.34-5.60) mcIU/mL Urine Color Yellow Urine Appearance Clear Urine pH 6.0 (5-9) Ur Specific [place] 1.010 (1.010-1.030) Urine Protein Negative (Negative) Urine Ketones Negative (Negative) Urine Blood 2+ A (Negative) Urine Nitrate Negative (Negative) Urine Bilirubin Negative (Negative) Urine Urobilinogen Negative (Negative) Ur Leukocyte Esterase Trace A (Negative) Urine WBC (Auto) Trace(0-5/hpf) (Absent) Urine RBC (Auto) 1+(3-5/hpf) A (Absent) Ur Squamous Epith Cells Present A (Absent) Urine Bacteria Absent (Absent) Urine Glucose Negative (Negative) 03/30/18 Range/Units 11:12 WBC (3.5-10.8) 10^3/ul RBC (4.00-5.40) 10^6/ul Hgb (12.0-16.0) g/dl Hct (35-47) % MCV (80-97) fL MCH (27-31) pg MCHC (31-36) g/dl RDW (10.5-15) % Plt Count (150-450) 10^3/ul MPV (7.4-10.4) um3 Neut % (Auto) (38-83) % Lymph % (Auto) (25-47) % [place] % (Auto) (0-7) % Eos % (Auto) (0-6) % Baso % (Auto) (0-2) % Absolute Neuts (auto) (1.5-7.7) 10^3/ul Absolute Lymphs (auto) (1.0-4.8) 10^3/ul Absolute Monos (auto) (0-0.8) 10^3/ul Absolute Eos (auto) (0-0.6) 10^3/ul Absolute Basos (auto) (0-0.2) 10^3/ul Absolute Nucleated RBC 10^3/ul Nucleated RBC % INR (Anticoag Therapy) (0.77-1.02) APTT (26.0-36.3) seconds Sodium (139-145) mmol/L Potassium (3.5-5.0) mmol/L Chloride (101-111) mmol/L Carbon Dioxide (22-32) mmol/L Anion Gap (2-11) mmol/L BUN (6-24) mg/dL Creatinine (0.51-0.95) mg/dL Est GFR ( Amer) (>60) Est GFR (Non-Af Amer) (>60) BUN/Creatinine Ratio (8-20) Glucose (70-100) mg/dL Lactic Acid (0.5-2.0) mmol/L Calcium (8.6-10.3) mg/dL Magnesium (1.9-2.7) mg/dL Total Bilirubin (0.2-1.0) mg/dL AST (13-39) U/L ALT (7-52) U/L Alkaline Phosphatase (34-104) U/L Total Creatine Kinase (10-223) U/L CK-MB (CK-2) (0.6-6.3) ng/mL Troponin I 0.01 (<0.04) ng/mL C-Reactive Protein (< 5.00) mg/L B-Natriuretic Peptide ( - 100) pg/mL Total Protein (6.4-8.9) g/dL Albumin (3.2-5.2) g/dL Globulin (2-4) g/dL Albumin/Globulin Ratio (1-3) Lipase (11.0-82.0) U/L TSH (0.34-5.60) mcIU/mL Urine Color Urine Appearance Urine pH (5-9) Ur Specific [place] (1.010-1.030) Urine Protein (Negative) Urine Ketones (Negative) Urine Blood (Negative) Urine Nitrate (Negative) Urine Bilirubin (Negative) Urine Urobilinogen (Negative) Ur Leukocyte Esterase (Negative) Urine WBC (Auto) (Absent) Urine RBC (Auto) (Absent) Ur Squamous Epith Cells (Absent) Urine Bacteria (Absent) Urine Glucose (Negative) Assess/Plan/Problems-Billing Assessment: 77 yo female with history of breast cancer in remission and PE admitted with chest pain after a meal. - Patient Problems (1) CAD (coronary artery disease) Current Visit: Yes Status: Acute Code(s): I25.10 - ATHSCL HEART DISEASE OF [place] CORONARY ARTERY W/O ANG PCTRS SNOMED Code(s): 83655162 Comment: -Continue ASA, statin, and betalocker -CCP, CHASTITY, proteinase 3 and Myeloperoxidase Ab were all found to be normal--- does not seem to be consistent with inflammatory causePlease touch base with Dr. King prior to D/C -ESR and CRP could be just an acute phase reactant post demand ischemia/Type II ID post stress test??? -Please see Dr. Hoyos note for details -To start Coumadin and Lovenox bridging by tomorrow per Dr. Brown if H&H is stable and no hematoma at the site of catheterization is found---Will defer with AM team to evaluate (2) NSVT (nonsustained ventricular tachycardia) Current Visit: Yes Status: Acute Code(s): I47.2 - VENTRICULAR TACHYCARDIA SNOMED Code(s): 651349504 Comment: -Continue metoprolol -Continue watchful waiting (3) Pleural effusion Current Visit: Yes Status: Acute Code(s): J90 - PLEURAL EFFUSION, NOT ELSEWHERE CLASSIFIED SNOMED Code(s): 84026838 Comment: #Pleural effusion, mild: -Could be due to CHF due to CAD found on cath significant to likely cause demand but not significant enough to be detected by stress test -Please see above (4) Liver nodule Current Visit: Yes Status: Acute Code(s): K76.89 - OTHER SPECIFIED DISEASES OF LIVER SNOMED Code(s): 882034830 Comment: -Will defer with PCP to F/U as outpatient with repeat U/S (5) Pulmonary embolism Current Visit: Yes Status: Acute Code(s): I26.99 - OTHER PULMONARY EMBOLISM WITHOUT ACUTE COR PULMONALE SNOMED Code(s): 71251673 Comment: #History of PE: -Please see above plan for anticoagulation above (6) DVT prophylaxis Current Visit: Yes Status: Acute Code(s): KTZ0237 - SNOMED Code(s): 293685465 Comment: -As discussed Status and Disposition: -Please start anticoagulation bridging as discussed with Dr. Brown--touch base with cardiology -Touch base with Dr. King
[2018-04-05 05:27] LABS: INR 0.99 (0.77-1.02)
[2018-04-05] MEDS ORDERED: Enoxaparin(*) 80 MG/0.8 ML SYR SUBCUT SCH (09:00)
[2018-04-05] MEDS: Metoprolol Tartrate TAB* 25 MG PO SCH (09:30)
[2018-04-05] MEDS: Aspirin EC TAB* 81 MG TAB.EC PO SCH (09:30)
[2018-04-05] MEDS: Famotidine TAB* 20 MG PO SCH (09:31)
[2018-04-05] MEDS: Nitrofurantoin Macrocrystals* 100 MG CAP PO SCH (09:34)
--- NOTE | 2018-04-05 15:19 | PN ---
Subjective Date of Service: 04/05/18 Interval History: Pt is feeling well. She is anxious go to go home. She denies any chest pain or SOB. She has ambulated without any dizziness. Objective Active Medications: Acetaminophen (Tylenol Tab*) 650 mg PO Q6H PRN PRN Reason: pain/fever Aspirin (Aspirin Ec Tab*) 81 mg PO DAILY [facility] Last Admin: 04/05/18 09:30 Dose: 81 mg Atorvastatin Calcium (Lipitor*) 40 mg PO 2100 [facility] Last Admin: 04/04/18 20:41 Dose: 40 mg Enoxaparin Sodium (Lovenox(*)) 70 mg SUBCUT Q12H [facility] Last Admin: 04/05/18 09:31 Dose: 70 mg Famotidine (Pepcid Tab*) 40 mg PO DAILY [facility] Last Admin: 04/05/18 09:31 Dose: 40 mg Metoprolol Tartrate (Lopressor Tab*) 12.5 mg PO Q12HR [facility] Last Admin: 04/05/18 09:30 Dose: 12.5 mg Morphine Sulfate (Morphine Vial*) 4 mg IV Q4H PRN PRN Reason: SEVERE PAIN Simethicone (Mylicon Tab*) 80 mg PO Q6H PRN PRN Reason: Bloating Last Admin: 04/01/18 19:57 Dose: 80 mg Zolpidem Tartrate (Ambien Tab*) 5 mg PO BEDTIME PRN PRN Reason: SLEEP Last Admin: 04/01/18 00:01 Dose: 5 mg Vital Signs - 8 hr 04/05/18 04/05/18 04/05/18 07:40 08:00 10:58 Temperature 97.9 F 98.7 F Pulse Rate 70 67 Respiratory Rate Blood Pressure 118/80 95/55 (mmHg) O2 Sat by Pulse 95 93 Oximetry Oxygen Devices in Use Now: None Appearance: Elderly female sitting up in bed, NAD Eyes: No Scleral Icterus Ears/Nose/Mouth/Throat: Mucous Membranes Moist Respiratory: Symmetrical Chest Expansion and Respiratory Effort, Clear to Auscultation Cardiovascular: NL Sounds; No Murmurs; No JVD, RRR, No Edema Abdominal: NL Sounds; No Tenderness; No Distention Extremities: No Clubbing, Cyanosis Skin: No Nodules or Sclerosis Neurological: Alert and Oriented x 3 Result Diagrams: 04/03/18 07:07 04/03/18 07:07 Additional Lab and Data: Lab Results 03/30/18 03/30/18 03/30/18 Range/Units 07:54 07:54 07:54 WBC 9.4 (3.5-10.8) 10^3/ul RBC 4.13 (4.00-5.40) 10^6/ul Hgb 13.1 (12.0-16.0) g/dl Hct 39 (35-47) % MCV 95 (80-97) fL MCH 32 H (27-31) pg MCHC 34 (31-36) g/dl RDW 14 (10.5-15) % Plt Count 177 (150-450) 10^3/ul MPV 7.8 (7.4-10.4) um3 Neut % (Auto) 80.2 (38-83) % Lymph % (Auto) 9.8 L (25-47) % [place] % (Auto) 9.3 H (0-7) % Eos % (Auto) 0.3 (0-6) % Baso % (Auto) 0.4 (0-2) % Absolute Neuts (auto) 7.5 (1.5-7.7) 10^3/ul Absolute Lymphs (auto) 0.9 L (1.0-4.8) 10^3/ul Absolute Monos (auto) 0.9 H (0-0.8) 10^3/ul Absolute Eos (auto) 0 (0-0.6) 10^3/ul Absolute Basos (auto) 0 (0-0.2) 10^3/ul Absolute Nucleated RBC 0 10^3/ul Nucleated RBC % 0 INR (Anticoag Therapy) (0.77-1.02) APTT (26.0-36.3) seconds Sodium 140 (139-145) mmol/L Potassium 4.1 (3.5-5.0) mmol/L Chloride 105 (101-111) mmol/L Carbon Dioxide 30 (22-32) mmol/L Anion Gap 5 (2-11) mmol/L BUN 18 (6-24) mg/dL Creatinine 0.77 (0.51-0.95) mg/dL Est GFR ( Amer) 93.5 (>60) Est GFR (Non-Af Amer) 72.7 (>60) BUN/Creatinine Ratio 23.4 H (8-20) Glucose 114 H (70-100) mg/dL Lactic Acid 0.9 (0.5-2.0) mmol/L Calcium 9.1 (8.6-10.3) mg/dL Magnesium 2.1 (1.9-2.7) mg/dL Total Bilirubin 0.50 (0.2-1.0) mg/dL AST 20 (13-39) U/L ALT 16 (7-52) U/L Alkaline Phosphatase 54 (34-104) U/L Total Creatine Kinase 231 H (10-223) U/L CK-MB (CK-2) 4.5 (0.6-6.3) ng/mL Troponin I 0.01 (<0.04) ng/mL C-Reactive Protein 46.98 H (< 5.00) mg/L B-Natriuretic Peptide ( - 100) pg/mL Total Protein 6.6 (6.4-8.9) g/dL Albumin 3.7 (3.2-5.2) g/dL Globulin 2.9 (2-4) g/dL Albumin/Globulin Ratio 1.3 (1-3) Lipase 24 (11.0-82.0) U/L TSH 1.70 (0.34-5.60) mcIU/mL Urine Color Urine Appearance Urine pH (5-9) Ur Specific [place] (1.010-1.030) Urine Protein (Negative) Urine Ketones (Negative) Urine Blood (Negative) Urine Nitrate (Negative) Urine Bilirubin (Negative) Urine Urobilinogen (Negative) Ur Leukocyte Esterase (Negative) Urine WBC (Auto) (Absent) Urine RBC (Auto) (Absent) Ur Squamous Epith Cells (Absent) Urine Bacteria (Absent) Urine Glucose (Negative) 03/30/18 03/30/18 03/30/18 Range/Units 07:54 07:54 09:30 WBC (3.5-10.8) 10^3/ul RBC (4.00-5.40) 10^6/ul Hgb (12.0-16.0) g/dl Hct (35-47) % MCV (80-97) fL MCH (27-31) pg MCHC (31-36) g/dl RDW (10.5-15) % Plt Count (150-450) 10^3/ul MPV (7.4-10.4) um3 Neut % (Auto) (38-83) % Lymph % (Auto) (25-47) % [place] % (Auto) (0-7) % Eos % (Auto) (0-6) % Baso % (Auto) (0-2) % Absolute Neuts (auto) (1.5-7.7) 10^3/ul Absolute Lymphs (auto) (1.0-4.8) 10^3/ul Absolute Monos (auto) (0-0.8) 10^3/ul Absolute Eos (auto) (0-0.6) 10^3/ul Absolute Basos (auto) (0-0.2) 10^3/ul Absolute Nucleated RBC 10^3/ul Nucleated RBC % INR (Anticoag Therapy) 2.59 H (0.77-1.02) APTT 39.1 H (26.0-36.3) seconds Sodium (139-145) mmol/L Potassium (3.5-5.0) mmol/L Chloride (101-111) mmol/L Carbon Dioxide (22-32) mmol/L Anion Gap (2-11) mmol/L BUN (6-24) mg/dL Creatinine (0.51-0.95) mg/dL Est GFR ( Amer) (>60) Est GFR (Non-Af Amer) (>60) BUN/Creatinine Ratio (8-20) Glucose (70-100) mg/dL Lactic Acid (0.5-2.0) mmol/L Calcium (8.6-10.3) mg/dL Magnesium (1.9-2.7) mg/dL Total Bilirubin (0.2-1.0) mg/dL AST (13-39) U/L ALT (7-52) U/L Alkaline Phosphatase (34-104) U/L Total Creatine Kinase (10-223) U/L CK-MB (CK-2) (0.6-6.3) ng/mL Troponin I (<0.04) ng/mL C-Reactive Protein (< 5.00) mg/L B-Natriuretic Peptide 60 ( - 100) pg/mL Total Protein (6.4-8.9) g/dL Albumin (3.2-5.2) g/dL Globulin (2-4) g/dL Albumin/Globulin Ratio (1-3) Lipase (11.0-82.0) U/L TSH (0.34-5.60) mcIU/mL Urine Color Yellow Urine Appearance Clear Urine pH 6.0 (5-9) Ur Specific [place] 1.010 (1.010-1.030) Urine Protein Negative (Negative) Urine Ketones Negative (Negative) Urine Blood 2+ A (Negative) Urine Nitrate Negative (Negative) Urine Bilirubin Negative (Negative) Urine Urobilinogen Negative (Negative) Ur Leukocyte Esterase Trace A (Negative) Urine WBC (Auto) Trace(0-5/hpf) (Absent) Urine RBC (Auto) 1+(3-5/hpf) A (Absent) Ur Squamous Epith Cells Present A (Absent) Urine Bacteria Absent (Absent) Urine Glucose Negative (Negative) 03/30/18 Range/Units 11:12 WBC (3.5-10.8) 10^3/ul RBC (4.00-5.40) 10^6/ul Hgb (12.0-16.0) g/dl Hct (35-47) % MCV (80-97) fL MCH (27-31) pg MCHC (31-36) g/dl RDW (10.5-15) % Plt Count (150-450) 10^3/ul MPV (7.4-10.4) um3 Neut % (Auto) (38-83) % Lymph % (Auto) (25-47) % [place] % (Auto) (0-7) % Eos % (Auto) (0-6) % Baso % (Auto) (0-2) % Absolute Neuts (auto) (1.5-7.7) 10^3/ul Absolute Lymphs (auto) (1.0-4.8) 10^3/ul Absolute Monos (auto) (0-0.8) 10^3/ul Absolute Eos (auto) (0-0.6) 10^3/ul Absolute Basos (auto) (0-0.2) 10^3/ul Absolute Nucleated RBC 10^3/ul Nucleated RBC % INR (Anticoag Therapy) (0.77-1.02) APTT (26.0-36.3) seconds Sodium (139-145) mmol/L Potassium (3.5-5.0) mmol/L Chloride (101-111) mmol/L Carbon Dioxide (22-32) mmol/L Anion Gap (2-11) mmol/L BUN (6-24) mg/dL Creatinine (0.51-0.95) mg/dL Est GFR ( Amer) (>60) Est GFR (Non-Af Amer) (>60) BUN/Creatinine Ratio (8-20) Glucose (70-100) mg/dL Lactic Acid (0.5-2.0) mmol/L Calcium (8.6-10.3) mg/dL Magnesium (1.9-2.7) mg/dL Total Bilirubin (0.2-1.0) mg/dL AST (13-39) U/L ALT (7-52) U/L Alkaline Phosphatase (34-104) U/L Total Creatine Kinase (10-223) U/L CK-MB (CK-2) (0.6-6.3) ng/mL Troponin I 0.01 (<0.04) ng/mL C-Reactive Protein (< 5.00) mg/L B-Natriuretic Peptide ( - 100) pg/mL Total Protein (6.4-8.9) g/dL Albumin (3.2-5.2) g/dL Globulin (2-4) g/dL Albumin/Globulin Ratio (1-3) Lipase (11.0-82.0) U/L TSH (0.34-5.60) mcIU/mL Urine Color Urine Appearance Urine pH (5-9) Ur Specific [place] (1.010-1.030) Urine Protein (Negative) Urine Ketones (Negative) Urine Blood (Negative) Urine Nitrate (Negative) Urine Bilirubin (Negative) Urine Urobilinogen (Negative) Ur Leukocyte Esterase (Negative) Urine WBC (Auto) (Absent) Urine RBC (Auto) (Absent) Ur Squamous Epith Cells (Absent) Urine Bacteria (Absent) Urine Glucose (Negative) Assess/Plan/Problems-Billing 77 yo female with history of breast cancer in remission and PE admitted with chest pain after a meal. - Patient Problems (1) CAD (coronary artery disease) Current Visit: Yes Status: Acute Code(s): I25.10 - ATHSCL HEART DISEASE OF [place] CORONARY ARTERY W/O ANG PCTRS SNOMED Code(s): 26499885 Comment: Pt with diffuse CAD but no critical lesions. Pt with NSTEMI. No intervention by Dr. Holder. Continue lipitor 20mg, ASA and metoprolol. All autoimmune markers negative. Coxsackie serology pending. CRP is trending down but ESR still elevated but this takes longer to normalize. Lovenox bridging to coumadin started this AM. Pt feels comfortable with the lovenox injections. (2) History of pulmonary embolism Current Visit: Yes Status: Acute Code(s): Z86.711 - PERSONAL HISTORY OF PULMONARY EMBOLISM SNOMED Code(s): 633966013 Comment: Lovenox bridge to coumadin. (3) NSVT (nonsustained ventricular tachycardia) Current Visit: Yes Status: Acute Code(s): I47.2 - VENTRICULAR TACHYCARDIA SNOMED Code(s): 303628658 Comment: No further episodes. Pt underwent cath that showed diffuse disease but no critical lesions. Normal EF. Continue metoprolol. (4) Pleural effusion Current Visit: Yes Status: Acute Code(s): J90 - PLEURAL EFFUSION, NOT ELSEWHERE CLASSIFIED SNOMED Code(s): 73713911 Comment: Unclear etiology. ? secondary to inflammatory process. Follow as outpatient. (5) Liver nodule Current Visit: Yes Status: Acute Code(s): K76.89 - OTHER SPECIFIED DISEASES OF LIVER SNOMED Code(s): 930376585 Comment: Follow up with PCP as outpatient. (6) History of breast cancer Current Visit: Yes Status: Acute Code(s): Z85.3 - PERSONAL HISTORY OF MALIGNANT NEOPLASM OF BREAST SNOMED Code(s): 401745025 Comment: Reportedly in remission. S/P mastectomy, radiation, chemo in 1999 (7) DVT prophylaxis Current Visit: Yes Status: Acute Code(s): KJL7794 - SNOMED Code(s): 259389273 Comment: lovenox (8) Full code status Current Visit: Yes Status: Acute Code(s): Z78.9 - OTHER SPECIFIED HEALTH STATUS SNOMED Code(s): 539373052 Status and Disposition: -Please start anticoagulation bridging as discussed with Dr. Brown--touch base with cardiology -Touch base with Dr. King
[2018-04-05 15:26] VITALS: BP 123/65
--- NOTE | 2018-04-06 10:26 | CATH ---
CC: Dr. Oswaldo Guo, Fax#: [phone] *, Dr. Foreign Hernandez MD CARDIAC CATHETERIZATION REPORT: DATE OF PROCEDURE: 04/04/18 - ROOM #[id number] INDICATION FOR PROCEDURE: The patient with abnormal cardiac enzymes raising question of a non-ST elevation myocardial infarction, assess for underlying coronary artery disease with presentation of chest discomfort. PROCEDURE: Coronary arteriography, left heart catheterization, left ventriculography. The patient was interviewed and examined on the floor of the hospital where the risks and benefits were explained. She understood them and wished to proceed. EQUIPMENTS UTILIZED: Right femoral artery sheath: A 5-Jordanian 11-cm Rosemary sheath. Diagnostic coronary arteriography, an FL4 and an FR4 5-Jordanian diagnostic catheter. Left heart catheterization catheter: A 5-Jordanian angled pigtail catheter. Closure device was a 5-Jordanian Mynx closure device. MEDICATIONS GIVEN: Included: 1. 0.5 mg of Versed. 2. 12.5 mcg of fentanyl. 3. 75 mcg of intracoronary nitroglycerin. DESCRIPTION OF PROCEDURE: The patient was prepped and draped in sterile fashion. A time-out was performed. The right femoral artery area was prepped and draped in a sterile fashion and right femoral artery was cannulated and the 5-Jordanian sheath was placed. Diagnostic coronary arteriography was performed followed by central aortic pressure recorded with pigtail catheter, which was then advanced across the aortic valve into the left ventricle where left ventricular pressure was recorded and left ventriculography performed. Following this, the catheter was pulled back across the aortic valve to recheck gradient. Following this, an injection was made into the right femoral sheath to assess the eligibility to utilize closure device. It was found to be acceptable for this and as such a 5-[place]ian Mynx closure device was deployed with good hemostasis. The total contrast used was 80 cc of Omnipaque dye. The radiation exposure included 4.5 minutes of fluoro time. The air kerma radiation was 613 milligray. The DAP radiation was 3493 microgray per sq. m. RESULTS: HEMODYNAMIC DATA: Left heart catheterization: Central aortic pressure recorded at 126/66 with a mean of 90, left ventricular pressure 129 over left ventricular end diastolic pressure of 4 to 5 mmHg. LEFT VENTRICULOGRAPHY: Performed in the ARCE projection revealed symmetrical contraction of the left ventricle, overall ejection fraction approximately 55%. No significant focal wall motion abnormality was noted. CORONARY ARTERIOGRAPHY: A. Left coronary artery: 1. Left main - long in nature with no significant narrowing seen. 2. Left anterior descending artery - the left anterior descending artery had proximal luminal caliber change of 20% followed by 35%. In the mid portion of this vessel, the caliber decreased again by 25% to 30%. The distal most area supplied a distal very thin diagonal branch, which had a long segment of 95 % stenosis as well as the continuation of the LAD, which had diffuse very small caliber disease noted. More proximally, the LAD had a first diagonal branch that was somewhat small caliber, but no significant stenosis. 3. Circumflex artery - a nondominant vessel supplying a moderate-sized trifurcation obtuse marginal branch, which bifurcated in its mid segment. The continuation of the circumflex supplied a thin first followed by second obtuse marginal branch with two more moderate-sized low-lying obtuse marginal branches. Of note, there appeared to be corkscrew appearance to the distal most areas of the circumflex arteries and diagonal branches suggesting left ventricular hypertrophy. No significant disease was seen throughout the circumflex artery. B. Right coronary artery - a dominant vessel supplying the PDA and 2 posterior left ventricular branches. There was calcium noted at the ostium of this vessel with an ostial narrowing of approximately 35% to 40%. The rest of the right coronary artery had mild ectasia in its proximal to mid portion with no significant stenosis identified. OVERALL ASSESSMENT: Normal left ventricular systolic function with diffusely diseased extremely small vessel narrowings in distal left anterior descending artery involving the last diagonal branch and the left anterior descending artery subtending a small apical region with preserved left ventricular function to it. Egus-fr-ccruziba coronary artery disease involving the ostium of the right coronary artery and tapering throughout the left anterior descending artery system, but no critical stenosis. At this point in time, aggressive medical management should be pursued with risk factor management including beta-mason therapy, aspirin therapy, and cholesterol-lowering agents. The patient will be eventually following up with her family doctor in [place] in June. In the meantime , I will perform a wound check on her in about a week and have Dr. Hernandez see her in 2 weeks as he was the primary independent agent music education, who saw her in the hospital. [id number]/[facility] #: [id number] [facility]ITALAda
--- NOTE | 2018-04-06 12:50 | DS ---
CC: Dr. Oswaldo Guo; Dr. Hernandez; Dr. Holder * DISCHARGE SUMMARY: DATE OF ADMISSION: 03/30/18 DATE OF DISCHARGE: 04/05/18 PRIMARY CARE PROVIDER: Dr. Oswaldo Guo. PRINCIPAL DIAGNOSES: 1. Non-ST elevation myocardial infarction. 2. Elevated inflammatory markers of unclear etiology. 3. Mild pleural effusion. 4. Nonsustained ventricular tachycardia. SECONDARY DIAGNOSES: 1. History of pulmonary embolism. 2. History of breast cancer. 3. Gastroesophageal reflux disease. DISCHARGE MEDICATIONS: 1. Ambien 5 mg p.o. q.h.s. p.r.n. insomnia. 2. Coumadin 7.5 mg p.o. Wednesday, ; 5 mg all other days of the week. 3. Gaviscon 1 tab p.o. q.6 hours p.r.n. indigestion. 4. Nitrofurantoin 100 mg p.o. b.i.d. for urinary tract infection. 5. Famotidine 40 mg p.o. daily. 6. Metoprolol tartrate 12.5 mg p.o. q.12 hours (new). 7. Lovenox 70 mg subcutaneous q.12 hours until INR is therapeutic. 8. Lipitor 20 mg p.o. q.h.s. 9. Aspirin 81 mg p.o. daily. HOSPITAL COURSE: Ms. Diaz is a 77-year-old female who presented to the emergency room on 03/30/18 with complaints of chest pain. The patient around 8 p.m. on the night prior to admission developed retrosternal chest pain without radiation. She thought this was possibly related to eating salmon for dinner. She took some Gaviscon without any improvement. The pain also worsened with leaning forward and deep inspiration. Because of these symptoms, she presented to the emergency room for evaluation. The concern on admission was for acute coronary syndrome versus possible pericarditis given her history. Initially, her troponins were negative x2 at 0.01; however, on the third read it was up to 0.03. This was approximately at 1400 on 03/30/18. At 05:35 on 03/31/18, the patient began to have some very mild chest pain and feeling like she could not take a full deep breath. She at 07:15 had a 3-beat run of ventricular tachycardia. On 03/31/18 at 05:35, the troponin was up to 2.79. The patient's troponin ultimately peaked at 4.52 on the evening of 03/31/18. The patient was seen in consultation by Dr. Hernandez, who recommended starting low-dose beta- mason. Ultimately, the patient was seen by Dr. Holder for cardiac catheterization, which was done on 04/03/18. This revealed diffuse coronary disease, but no critical lesions to stent. The patient was also seen by Dr. Nance for concern for possible myocarditis or pericarditis. It is his impression that her case was a little atypical in the rapid resolution of her pain; however, was still felt to be a consideration. She was also seen by Dr. King from Rheumatology, who felt that the patient could have possible pericarditis versus an underlying autoimmune cause or paraneoplastic process. It was recommended to check an CHASTITY, JOIE level and Sjogren's antibodies. So far , CCP, CHASTITY, myeloperoxidase antibody and PR3 antibodies are all negative. Coxsackievirus testing was sent and this was all pending at the time of this dictation. At this point, the patient is chest pain-free, she has been ambulating in the [place] and feeling quite well. She is now anxious for discharge home. The patient continues to have elevated markers of inflammation ; however, her CRP has trended down. It started at 46.98, peaked at 128.91 and is down to 38.34 on 04/03/18. Her ESR is still elevated; however, this will take longer to normalize. The etiology of her inflammatory marker elevation is not completely clear, but can be followed as an outpatient. As the patient was on Coumadin for her history of PE, this had to be discontinued prior to catheterization. The patient is now bridging with Lovenox back to a therapeutic INR. She is to have an INR obtained on 04/08/18. I will follow this up myself and let the patient know what to do with her Lovenox dosing. The patient will be seen in the [facility] on at 1:[address] Holder at 3 p.m. on 04/11/18. The patient also has a followup appointment with Dr. Hernandez for 04/28/18 at 11 a.m. FOLLOWUP CONCERNS: The patient is being discharged home today, 04/05/18. ACTIVITY LEVEL: As tolerated. DIET: Low-fat. CONDITION ON DISCHARGE: Stable. TIME SPENT: Forty minutes was spent discharging this patient. [id number]/[facility] #: [id number] MTDD
== END 2018-04-05 16:35 | disposition home or self-care (01) | DRG 281 ==
LOC: ED 06:44 → MEDTELE 11:21 → OBSVTOIN 03-31 14:00
PROVIDERS: ADMIT Internal Medicine; ATTEND Hospitalist
PROC: 4A023N7 Measurement of Cardiac Sampling and Pressure, Left Heart, Percutaneous Approach (ICD-10-PCS; 2018-04-04)
PROC: B2151ZZ Fluoroscopy of Left Heart using Low Osmolar Contrast (ICD-10-PCS; 2018-04-04)
PROC: B2111ZZ Fluoroscopy of Multiple Coronary Arteries using Low Osmolar Contrast (ICD-10-PCS; principal; 2018-04-04 08:00)
DX: I21.4 Non-ST elevation (NSTEMI) myocardial infarction (principal); J90 Pleural effusion, not elsewhere classified; I47.2 Ventricular tachycardia; I48.0 Paroxysmal atrial fibrillation; Z96.643 Presence of artificial hip joint, bilateral; K44.9 Diaphragmatic hernia without obstruction or gangrene; I27.20 Pulmonary hypertension, unspecified; K76.89 Other specified diseases of liver; I25.10 Atherosclerotic heart disease of native coronary artery without angina pectoris; K21.9 Gastro-esophageal reflux disease without esophagitis; E01.0 Iodine-deficiency related diffuse (endemic) goiter; I08.3 Combined rheumatic disorders of mitral, aortic and tricuspid valves; Z82.61 Family history of arthritis; Z86.711 Personal history of pulmonary embolism; Z82.49 Family history of ischemic heart disease and other diseases of the circulatory system; Z72.89 Other problems related to lifestyle; Z90.12 Acquired absence of left breast and nipple; Z79.82 Long term (current) use of aspirin; Z79.01 Long term (current) use of anticoagulants; Z86.718 Personal history of other venous thrombosis and embolism; Z85.3 Personal history of malignant neoplasm of breast; Z92.3 Personal history of irradiation; Z92.21 Personal history of antineoplastic chemotherapy
CPT/HCPCS: 36415; 71045; 71275; 76937; 78452; 80048; 80053; 80061; 81003; 81015; 82164; 82550; 82553; 83516; 83605; 83690; 83735; 83880; 84100; 84443; 84484; 85025; 85027; 85610; 85652; 85730; 86038; 86140; 86141; 86200; 86618; 86658; 87086; 93005; 93017; 93306; 93458; 93880; 99156; 99157; 99284; A9270-GY; A9502; C1887; J1644; J1650; J1885; J2250; J2270; J3010; Q9967

== ENCOUNTER 2018-04-10 07:42 | Emergency (ER) | payer MEDICARE ==
[2018-04-10 08:23] LABS: ABS Basophils 0.1 10^3/ul (0-0.2); ABS Eosinophils 0.1 10^3/ul (0-0.6); ABS Lymphocytes 1.5 10^3/ul (1.0-4.8); ABS Monocytes 0.6 10^3/ul (0-0.8); ABS Neutrophils 4.7 10^3/ul (1.5-7.7); ABS Nucleated RBC 0 10^3/ul; Eosinophil % 1.2 % (0-6); Hematocrit 36 % (35-47); Hemoglobin 12.3 g/dl (12.0-16.0); Lymphocyte % 20.9 % (25-47); Mean Corpuscular HGB Conc 34 g/dl (31-36); Mean Corpuscular Hemoglobin 32 pg (27-31); Mean Corpuscular Volume 94 fL (80-97); Nucleated Red Blood Cells % 0; Platelet Count 224 10^3/ul (150-450); Red Blood Count 3.82 10^6/ul (4.00-5.40); Red Cell Distribution Width 13 % (10.5-15)
[2018-04-10 08:36] LABS: INR 1.46 (0.77-1.02)
[2018-04-10 08:48] LABS: EGFR Non-African American 79.8 (>60)
--- NOTE | 2018-04-10 09:20 | RAD ---
INDICATION: Recent right groin catheterization. Evaluate for pseudoaneurysm. COMPARISON: None TECHNIQUE: Transverse and longitudinal scans of the right inguinal region were performed utilizing grayscale and color Doppler imaging. FINDINGS: There is no evidence of pseudoaneurysm. The common and superficial femoral arteries are patent and demonstrate normal waveforms. The corresponding common femoral vein is patent and demonstrates a normal waveform. There is a small hematoma measuring 2.0 x 1.3 4.6 cm. IMPRESSION:NO EVIDENCE OF PSEUDOANEURYSM. SMALL HEMATOMA.
[2018-04-10 11:09] VITALS: BP 147/87
--- NOTE | 2018-04-10 11:17 | PN ---
Progress Note - Progress Note Date of Service: 04/10/18 Note: . Asked to see patient by Dr. Wang. 77 yo female s/p cath on 04/04/2018 --> no PCI. Was on AC for h/o PE...this was stopped and bridged with Lovenox. Pt got vitamin K before cath, INR remains low --> today 1.46. Pt c/o R groin hematoma and ipsilateral numbness, but not severe, and no motor weakness. good vascular function - cap refill normal. Groin U/S showed no pseudo-aneurysm, only hematoma. Vascular surgery (RIC) recommended through our ED physician a CT w contrast to ensure no extensive leak, but patient refuses that. ICE recommended as well as at least one week off anticoagulation to allow full hemostasis. Can continue low dose ASA (81 mg). Has follow up appointment with joy operator helper tomorrow that she will keep... Also has f/u appt with [facility] at 1:30 -- she will keep that as well. I am ok with her leaving (discharged) -- she is accompanied by her -- has ability to come back if any problems arise or continue. No pain in R groin at rest.
--- NOTE | 2018-04-10 13:04 | ED ---
Joy Guajardo Julia, scribed for Dejuan Wang MD on 04/10/18 at 0804 . Complex/Multi-Sys Presentation - HPI Summary HPI Summary: This patient is a 77 year old F presenting to [facility] accompanied by her with a chief complaint of bruising and swelling at the site of cardiac catheter , performed on 04/05/[address] Mi. She states she noticed bruising to the site yesterday. worsening Reports numbness of the left plantar surface of the foot. Denies pain at site of catheterization, chest pain, LLE pain, and SOB. PMHx includes two previous PE and a NE occurring last week. - History Of Current Complaint Chief Complaint: EDGeneral Hx Obtained From: Patient Onset/Duration: Lasting Days Timing: Constant Severity Initially: Mild Location: Negative Associated Signs And Symptoms: Positive: Other - changes in sensation. 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 Infectious Disease History: No Infectious Disease History: Denies: Traveled Outside the [place] in Last 30 Days - Family History Known Family History: Positive: Cardiac Disease - Social History Alcohol Use: Occasionally Substance Use Type: Reports: None Smoking Status (MU): Never Smoked Tobacco Review of Systems Negative: Chest Pain Negative: Shortness Of Breath Negative: Myalgia Neurological: Other - numbness to plantar left foot All Other Systems Reviewed And Are Negative: Yes Physical Exam - Summary Physical Exam Summary: General: well-appearing, no pain distress, Skin: warm, color reflects adequate perfusion, dry, no cyanosis Head: normal Eyes: EOMI, RODY ENT: normal Neck: supple, nontender Respiratory: CTA, breath sounds present Cardiovascular: RRR Abdomen: soft, nontender Bowel: present Musculoskeletal: normal, strength/ROM intact, posterior tibial and dorsalis pedis pulses are normal, Catheter site: ecchymosis and swelling at the puncture site with mild tenderness to palpation, no drainage or erythema Neurological: sensory/motor intact, A&O x3, Patient reports changes in sensation of plantar surface of foot, but sensation is intact in whole left leg Psychological: affect/mood appropriate Triage Information Reviewed: Yes Vital Signs On Initial Exam: Initial Vitals Temp Pulse Resp BP Pulse Ox 98.3 F 70 16 136/72 93 04/10/18 07:47 04/10/18 07:47 04/10/18 07:47 04/10/18 07:47 04/10/18 07:47 Vital Signs Reviewed: Yes Diagnostics - Vital Signs Vital Signs Temp Pulse Resp BP Pulse Ox 04/10/18 07:47 98.3 F 70 16 136/72 93 - Laboratory Lab Results: Lab Results 04/10/18 04/10/18 04/10/18 Range/Units 08:13 08:13 08:13 WBC 7.0 (3.5-10.8) 10^3/ul RBC 3.82 L (4.00-5.40) 10^6/ul Hgb 12.3 (12.0-16.0) g/dl Hct 36 (35-47) % MCV 94 (80-97) fL MCH 32 H (27-31) pg MCHC 34 (31-36) g/dl RDW 13 (10.5-15) % Plt Count 224 (150-450) 10^3/ul MPV 8.0 (7.4-10.4) um3 Neut % (Auto) 67.9 (38-83) % Lymph % (Auto) 20.9 L (25-47) % Parmer % (Auto) 9.3 H (0-7) % Eos % (Auto) 1.2 (0-6) % Baso % (Auto) 0.7 (0-2) % Absolute Neuts (auto) 4.7 (1.5-7.7) 10^3/ul Absolute Lymphs (auto) 1.5 (1.0-4.8) 10^3/ul Absolute Monos (auto) 0.6 (0-0.8) 10^3/ul Absolute Eos (auto) 0.1 (0-0.6) 10^3/ul Absolute Basos (auto) 0.1 (0-0.2) 10^3/ul Absolute Nucleated RBC 0 10^3/ul Nucleated RBC % 0 INR (Anticoag Therapy) 1.46 H (0.77-1.02) APTT 39.4 H (26.0-36.3) seconds Sodium 141 (135-145) mmol/L Potassium 4.1 (3.5-5.0) mmol/L Chloride 106 (101-111) mmol/L Carbon Dioxide 28 (22-32) mmol/L Anion Gap 7 (2-11) mmol/L BUN 15 (6-24) mg/dL Creatinine 0.71 (0.51-0.95) mg/dL Est GFR ( Amer) 96.6 (>60) Est GFR (Non-Af Amer) 79.8 (>60) BUN/Creatinine Ratio 21.1 H (8-20) Glucose 106 H (70-100) mg/dL Calcium 8.8 (8.6-10.3) mg/dL Total Bilirubin 0.30 (0.2-1.0) mg/dL AST 21 (13-39) U/L ALT 24 (7-52) U/L Alkaline Phosphatase 60 (34-104) U/L Total Protein 6.3 L (6.4-8.9) g/dL Albumin 3.5 (3.2-5.2) g/dL Globulin 2.8 (2-4) g/dL Albumin/Globulin Ratio 1.3 (1-3) Blood Type Antibody Screen 04/10/18 Range/Units 08:13 WBC (3.5-10.8) 10^3/ul RBC (4.00-5.40) 10^6/ul Hgb (12.0-16.0) g/dl Hct (35-47) % MCV (80-97) fL MCH (27-31) pg MCHC (31-36) g/dl RDW (10.5-15) % Plt Count (150-450) 10^3/ul MPV (7.4-10.4) um3 Neut % (Auto) (38-83) % Lymph % (Auto) (25-47) % Parmer % (Auto) (0-7) % Eos % (Auto) (0-6) % Baso % (Auto) (0-2) % Absolute Neuts (auto) (1.5-7.7) 10^3/ul Absolute Lymphs (auto) (1.0-4.8) 10^3/ul Absolute Monos (auto) (0-0.8) 10^3/ul Absolute Eos (auto) (0-0.6) 10^3/ul Absolute Basos (auto) (0-0.2) 10^3/ul Absolute Nucleated RBC 10^3/ul Nucleated RBC % INR (Anticoag Therapy) (0.77-1.02) APTT (26.0-36.3) seconds Sodium (135-145) mmol/L Potassium (3.5-5.0) mmol/L Chloride (101-111) mmol/L Carbon Dioxide (22-32) mmol/L Anion Gap (2-11) mmol/L BUN (6-24) mg/dL Creatinine (0.51-0.95) mg/dL Est GFR ( Amer) (>60) Est GFR (Non-Af Amer) (>60) BUN/Creatinine Ratio (8-20) Glucose (70-100) mg/dL Calcium (8.6-10.3) mg/dL Total Bilirubin (0.2-1.0) mg/dL AST (13-39) U/L ALT (7-52) U/L Alkaline Phosphatase (34-104) U/L Total Protein (6.4-8.9) g/dL Albumin (3.2-5.2) g/dL Globulin (2-4) g/dL Albumin/Globulin Ratio (1-3) Blood Type B Positive Antibody Screen Negative Result Diagrams: 04/10/18 08:13 04/10/18 08:13 Lab Statement: Any lab studies that have been ordered have been reviewed, and results considered in the medical decision making process. - Additional Comments Diagnostic Additional Comments: Groin Doppler US reveals, as per radiologist: FINDINGS: There is no evidence of pseudoaneurysm. The common and superficial femoral arteries are patent and demonstrate normal waveforms. The corresponding common femoral vein is patent and demonstrates a normal waveform. There is a small hematoma measuring 2.0 x 1.3 4.6 cm. IMPRESSION:NO EVIDENCE OF PSEUDOANEURYSM. SMALL HEMATOMA. ED Physician has reviewed this report. Complex Multi-Symp Course/Dx Course Of Treatment: DISCUSSED WITH DR MI (CARDIOLOGY), DR DIGGS ( [facility]), AND DR WOODWARD (HOSPITALIST). DR DIGGS RECOMMENDED ICE PACK, CT WITH IV CONTRAST TO EVALUATE THE EXTENT OF THE HEMATOMA AND STOPPING LOVENOX. DR WOODWARD SAW THE PATIENT IN THE ED. THE PATIENT DECLINED THE CT. STOP THE LOVENOX AND COUMADIN, CONTINUE ASPIRIN. F/U TOMORROW SCHEDULED; RETURN TO ED IF WORSE. - Diagnoses Provider Diagnoses: Hematoma of intravenous catheter site - Physician Notifications Discussed Care Of Patient With: Oswaldo Woodward - hospitalist Time Discussed With Above Provider: 10:17 Instructed by Provider To: MD Will See In ED - will check anticoags and will speak to Dr. Lawrence, cardiology At 11:02, Crissy recommends discharge to stop all anti coagulants for at least a week. Discharge - Sign-Out/Discharge Documenting (check all that apply): Discharge/Admit/Transfer - discharge - Discharge Plan Condition: Stable Disposition: HOME Patient Education Materials: Hematoma (ED) Referrals: Shane Mi MD [Medical Doctor] - Additional Instructions: FOLLOW UP WITH YOUR PRIMARY CARE DOCTOR AND ELECTRICAL CONTROLS TECHNICIAN, DR MI. REST AND USE ICE PACKS ON YOUR RIGHT GROIN HEMATOMA. RETURN TO THE EMERGENCY DEPARTMENT FOR ANY WORSENING OF YOUR CONDITION; INCREASED SWELLING, PAIN, FEVER, POOR PERFUSION IN YOUR RIGHT LEG, YOU FEEL ILL , YOU FEEL LIKE PASSING OUT OR QUESTIONS OR CONCERNS. - Billing Disposition and Condition Condition: STABLE Disposition: Home The documentation as recorded by the Joy nye Julia accurately reflects the service I personally performed and the decisions made by me, Dejuan Wang MD.
== END 2018-04-10 11:48 | disposition home or self-care (01) ==
LOC: ED 07:42
DX: I97.630 Postprocedural hematoma of a circulatory system organ or structure following a cardiac catheterization (principal); I25.2 Old myocardial infarction; R20.0 Anesthesia of skin; Z86.711 Personal history of pulmonary embolism; Z79.01 Long term (current) use of anticoagulants
CPT/HCPCS: 36415; 80053; 85025; 85610; 85730; 86850; 86900; 86901; 99283

== ENCOUNTER 2019-03-10 09:33 | Emergency (ER) | payer MEDICARE ==
[2019-03-10] MEDS ORDERED: fentaNYL* 50 MCG/ML 2 ML VIAL (100 MCG VIAL) IV SLOW PU ONE (09:56)
[2019-03-10] MEDS ORDERED: Morphine 4 MG/ML VIAL (1 ml) 4 MG/ML VIAL IV ONE (10:41)
--- NOTE | 2019-03-10 10:45 | ED ---
Lower Extremity - HPI Summary HPI Summary: 78-year-old female presents with right hip pain today. She states she bent over and felt her right hip pop out of place. This has never happened before. She has history of bilateral hip replacements 10 years ago in [place]. Has history of PEs and CAD. He states the area continues to spasm and she is having extreme pain. Denies any other injury. Did not fall. Has not been able to ambulate. - History of Current Complaint Chief Complaint: EDExtremityLower Stated Complaint: RT HIP DISLOCATION PER EMS Time Seen by Provider: 03/10/19 09:54 Pain Intensity: 5 - Allergies/Home Medications Allergies/Adverse Reactions: Allergies Allergy/AdvReac Type Severity Reaction Status Date / Time No Known Allergies Allergy Verified 03/10/19 09:46 Home Medications: Home Medications Metoprolol Tartrate TAB* [Lopressor TAB*] 12.5 mg PO BID 03/10/19 [History Confirmed 03/10/19] PMH/Surg Hx/FS Hx/Imm Hx Endocrine/Hematology History: Denies: Hx Anticoagulant Therapy Cardiovascular History: Reports: Hx Myocardial Infarction, Other Cardiovascular Problems/Disorders - Hx of Paroxysmal atrial fibrillation Denies: Hx Hypertension Respiratory History: Reports: Hx Pulmonary Embolism, Other Respiratory Problems/ Disorders - PE x2 (2001, 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 Infectious Disease History: No Infectious Disease History: Denies: Traveled Outside the [place] in Last 30 Days - Family History Known Family History: Positive: Cardiac Disease - Social History Alcohol Use: Rare Substance Use Type: Reports: None Smoking Status (MU): Never Smoked Tobacco Review of Systems Negative: Fever Negative: Chest Pain Negative: Shortness Of Breath Positive: Myalgia - right hip dislocation All Other Systems Reviewed And Are Negative: Yes Physical Exam Triage Information Reviewed: Yes Vital Signs On Initial Exam: Initial Vitals Temp Pulse Resp BP Pulse Ox 96.8 F 60 18 167/99 98 03/10/19 09:41 03/10/19 09:41 03/10/19 09:41 03/10/19 09:41 03/10/19 09:41 Vital Signs Reviewed: Yes Appearance: Positive: Pain Distress Skin: Positive: Warm, Dry Head/Face: Positive: Normal Head/Face Inspection Eyes: Positive: Normal, Conjunctiva Clear ENT: Positive: Pharynx normal Respiratory/Lung Sounds: Positive: Clear to Auscultation, Breath Sounds Present Cardiovascular: Positive: Normal, RRR Musculoskeletal: Positive: Limited @ - right hip pain, Other - good pulses, deformity to right hip Neurological: Positive: Normal Psychiatric: Positive: Normal Diagnostics - Vital Signs Vital Signs Temp Pulse Resp BP Pulse Ox 03/10/19 10:00 78 20 93 03/10/19 09:46 58 98 03/10/19 09:44 169/77 03/10/19 09:41 96.8 F 60 18 167/99 98 - Laboratory Result Diagrams: 03/10/19 12:45 03/10/19 12:45 Lab Statement: Any lab studies that have been ordered have been reviewed, and results considered in the medical decision making process. Re-Evaluation - Re-Evaluation First Eval Comment: still in pain Second Eval Re-Evaluation Time: 14:34 Comment: normal post sedation Lower Extremity Course/Dx - Course Course Of Treatment: 78-year-old female presents with right hip pain today. She states she bent over and felt her right hip pop out of place. This has never happened before. She has history of bilateral hip replacements 10 years ago in [place]. Has history of PEs and CAD. He states the area continues to spasm and she is having extreme pain. Denies any other injury. Did not fall. Has not been able to ambulate. On exam has tenderness of right hip. Deformity noted. Neurovascular intact. X-ray shows anterior hip dislocation. performed reduction with dr martinez and dr valenzuela with sedation. see dr valenzuela note for sedation note. Patient will be discharged with knee immbolizer. Told to follow up with ortho. Patient understands agrees the plan. - Diagnoses Differential Diagnosis/HQI/PQRI: Positive: Fracture (Closed), Sprain, Other - dislocation Provider Diagnoses: Hip dislocation, right Discharge - Sign-Out/Discharge Documenting (check all that apply): Patient Departure Patient Received Moderate/Deep Sedation with Procedure: Yes - Discharge Plan Condition: Good Disposition: HOME Patient Education Materials: Hip Dislocation (ED), Procedural Sedation (ED) Referrals: Alber Martinez MD [Medical Doctor] - Yuan Pedroza MD [Primary Care Provider] - Additional Instructions: apply ice to the area keep immobilize on area for the next week Take tyenlol as needed for pain Follow up with ortho do not bend from waist to the ground keep pillow between legs at night cut warfarin in half tonight so take 2.5mg Return to ED if develop any new or worsening symptoms - Billing Disposition and Condition Condition: GOOD Disposition: Home
[2019-03-10] MEDS ORDERED: Propofol* 10 MG/ML 20 ML BTL IV PUSH ONE (12:04)
--- NOTE | 2019-03-10 12:12 | ED ---
Progress - Progress Note Progress Note: This patient is being seen by GERMAINE Irwin, but Dr. Aquino did a pre- sedation assessment. Pre sedation assessment: normal heart and lung sounds No sleep apnea, no asthma, no adverse effects or prior emergence from anesthesia , has been NPO since last evening Mallampati score 2, ASA score 2 Re-Evaluation - Re-Evaluation First Eval Comment: still in pain Second Eval Re-Evaluation Time: 14:34 Comment: normal post sedation Course/Dx - Course Course Of Treatment: This patient is being seen by GERMAINE Irwin, but Dr. Aquino did a pre-sedation assessment. Pre sedation assessment: normal heart and lung sounds. No sleep apnea, no asthma, no adverse effects or prior emergence from anesthesia, has been NPO since last evening. Mallampati score 2 , ASA score 2. PROCEDURE NOTE: Procedure name: Procedural sedation. Indication: Left hip dislocation. Proceduralist: Dr. Christensen and Christine HERRON for reduction, Dr. Julio Aquino for procedural sedation. Details: Informed consent was obtained for procedural sedation. The risks of procedural sedation including hypotension, apnea, allergic reaction were all explained and accepted. The patient had no contraindications to emergency department procedural sedation. Emergency airway equipment was immediately available including suction and bag valve mask. Respiratory therapy was in attendance. Propofol was administered in increments of 40, 20, 20, 20 mg, for a total of 100 mg during the procedure. Reduction was successful. Patient did have brief apnea, shown on end-tidal CO2, there was no hypoxia. She did receive approximately 1 minute of ventilations via bag valve mask. She emerged otherwise uneventfully from procedural sedation. - Diagnoses Provider Diagnoses: Hip dislocation, right Discharge - Sign-Out/Discharge Documenting (check all that apply): Patient Departure Signing out patient TO: Galina Elizabeth Receiving patient FROM: Galina Elizabeth Patient Received Moderate/Deep Sedation with Procedure: Yes - Discharge Plan Condition: Good Disposition: HOME Patient Education Materials: Hip Dislocation (ED), Procedural Sedation (ED) Referrals: Alber Araiza MD [Medical Doctor] - Yuan Pedroza MD [Primary Care Provider] - Additional Instructions: apply ice to the area keep immobilize on area for the next week Take tyenlol as needed for pain Follow up with ortho do not bend from waist to the ground keep pillow between legs at night cut warfarin in half tonight so take 2.5mg Return to ED if develop any new or worsening symptoms - Billing Disposition and Condition Condition: GOOD Disposition: Home - Attestation Statements Document Initiated by Rainaibe: Yes Documenting Scribe: Shane Benson Provider For Whom Scribe is Documenting (Include Credential): Julio Aquino MD Scribe Attestation: I, Shane Benson, scribed for Julio Aquino MD on 03/16/19 at 1250. Scribe Documentation Reviewed: Yes Provider Attestation: The documentation as recorded by the Shane nye accurately reflects the service I personally performed and the decisions made by me, Julio Aquino MD Status of Scribe Document: Viewed
[2019-03-10] MEDS ORDERED: Propofol* 10 MG/ML 50 ML BTL IV PUSH ONE (13:00)
[2019-03-10 13:03] LABS: Hematocrit 38 % (35-47); Hemoglobin 12.9 g/dL (12.0-16.0); Mean Corpuscular HGB Conc 34 g/dL (31-36); Mean Corpuscular Hemoglobin 32 pg (27-31); Mean Corpuscular Volume 94 fL (80-97); Mean Platelet Volume 8.1 fL (7.4-10.4); Platelet Count 195 10^3/uL (150-450); Red Blood Count 4.08 10^6 /uL (3.70-4.87); Red Cell Distribution Width 15 % (10.5-15); White Blood Count 10.1 10^3/uL (3.5-10.8)
[2019-03-10 13:06] LABS: Activated Partial Thrombo Time 40.5 seconds (26.0-36.3); INR 3.05 (0.82-1.09)
[2019-03-10 13:10] LABS: Albumin/Globulin Ratio 1.4 (1-3); BUN/Creatinine Ratio 30.2 (8-20); Calcium 9.4 mg/dL (8.6-10.3); EGFR African American 110.6 (>60); EGFR Non-African American 91.4 (>60); Globulin 2.8 g/dL (2-4); Total Bilirubin 0.5 mg/dL (0.2-1.0); Total Protein 6.8 g/dL (6.4-8.9)
[2019-03-10] MEDS ORDERED: NS 0.9% 1000 ML** 1,000 ML IV ONE (13:15)
[2019-03-10 15:03] VITALS: BP 141/68
--- NOTE | 2019-03-10 17:14 | CONS ---
CONSULTATION AND PROCEDURE REPORT: DATE OF CONSULT: 03/10/19 REASON FOR CONSULTATION AND PROCEDURE: Right total hip arthroplasty dislocation. HISTORY OF PRESENT ILLNESS: The patient is a 78-year-old woman, who ambulates without assist, who splits her time living between [facility] and [facility], who underwent uncomplicated right total hip arthroplasty over [address] [facility], and who this morning at 8 a.m. sustained a dislocation of a right total hip arthroplasty. The patient has not had any prior difficulty with dislocations. She had been very happy with her right hip previously. No hip pain. This morning, the patient bent over as part of some gardening. She had some pain and deformity of the right hip. She knew her right hip had dislocated. The patient came to [place] emergency room [place] [facility] [place]rays demonstrated a dislocation. Orthopedic Surgery was consulted. The patient described significant pain about the right hip. It should be stated the patient actually has bilateral total hip arthroplasties in place, both done in [facility]. The patient is a former retired nurse in critical care. PAST MEDICAL HISTORY: History of myocardial infarction, atrial fibrillation, pulmonary emboli twice in 2001 and in 2008, breast cancer. PAST SURGICAL HISTORY: Mastectomy, bilateral total hip arthroplasty. MEDICATIONS: Metoprolol. ALLERGIES: No known drug allergies. FAMILY HISTORY: Noncontributory. Positive for cardiac disease. SOCIAL HISTORY: Rare alcohol use. The patient has never smoked tobacco. The patient had a niece and nephew with her in the emergency room today. She splits her time between [facility] and [facility] locally. REVIEW OF SYSTEMS: Significant pain and swelling appreciated about the right hip. The patient denied any chest pain or shortness of breath. No headache, fever, sweats or chills. PHYSICAL EXAMINATION: In no acute distress. Alert and oriented, patient was, however, in much pain clearly. The patient lying supine on bed in the emergency room. Appropriately dressed. Appropriate mood and affect. Vital Signs: Initially temperature 96.8 degrees Fahrenheit body temperature, pulse 60, blood pressure 167/99, respirations 18, and a pulse oxygenation 98% on room air. Right Lower Extremity: Showed an incision scar around the posterior lateral aspect of the right hip. Significant soft tissue swelling about the right hip. Some internal rotation and adduction deformity of the right lower extremity. Cap refill intact. Neurovascularly intact distally. DIAGNOSTIC STUDIES/LAB DATA: Imaging: X-ray views of the right hip x2 showed a dislocated right total hip arthroplasty. Dislocation appeared to be proximal with the head as well as posterior, although there is not a great lateral x-ray view obtained. ASSESSMENT: 1. First time right total hip arthroplasty dislocation. 2. Status post right total hip arthroplasty, in the distant past, over 10 years ago in [place]. PLAN: 1. Spoke to the patient about a relocation procedure either in the emergency room or in the operating room. Dr. Aquino was also involved in this discussion. Dr. Aquino is certified to provide propofol anesthesia in the emergency department, so we decided to move forward with that an attempt in the emergency room. If not be feasible in the emergency room, I made the necessary accommodations to free up space an hour or so later in the operating room. 2. The patient underwent a procedure in the emergency room, closed relocation, right hip. 3. Procedure: Closed relocation, right total hip arthroplasty under anesthesia. Verbal consent by me, tolerated well. Formal consent by OR staff. Propofol was administered by Dr. Aquino. Patient was relaxed and sedated. I performed a standard relocation maneuver and the hip clearly popped back into place. There is smooth pain-free excellent passive range of motion indicating further that the right hip had been successfully relocated. At this point, I felt for pulses and I felt a brisk intact dorsalis pedis and posterior tibialis pulses in the right foot. Foot warm and well perfused. 4. I asked imaging, x-ray imaging after the relocation procedure. It was obtained, 3 x-ray views of the right hip, which showed a well-located hip. Implants in place. No periprosthetic fracture. 5. The patient is weightbearing as tolerated. Activity as tolerated. She should follow posterior total hip precautions, especially seriously in the next 3 months. 6. I recommended a knee immobilizer or a hip abductor wedge when in bed at all times. I spoke to the patient's nephew and niece about the need for hip abduction wedge or knee immobilizer. While her soft tissues heal, she will certainly be at increased risk of a second dislocation event. 7. I told the patient's family that she is welcome to follow up with me in the office or one of my associates, partners. Alternatively, she is welcome to follow up with someone closer to her on [facility] or in [facility]. [id number]/[facility] #: [id number] GEORGE
== END 2019-03-10 15:02 | disposition home or self-care (01) ==
LOC: ED 09:33
DX: S73.004A Unspecified dislocation of right hip, initial encounter (principal); X50.1XXA Overexertion from prolonged static or awkward postures, initial encounter; Y92.9 Unspecified place or not applicable; Z96.643 Presence of artificial hip joint, bilateral
CPT/HCPCS: 27250; 27252; 36415; 80053; 85027; 85610; 85730; 96361; 96374; 96375; 99156; 99285; J2270; J2704; J3010

== ENCOUNTER 2019-03-20 16:46 | Emergency (ER) | payer MEDICARE ==
--- NOTE | 2019-03-20 17:05 | ED ---
Complex/Multi-Sys Presentation - HPI Summary HPI Summary: A 78 y/o F with pert PMHx: PE x2 presents to ED c/o sharp, intermittent L-sided CP onset yesterday. The pain radiates across her diaphragm. She notes also having a lot of indigestion recently but her BMs are normal. Pt denies any fever , chills, erythema of eyes, sore throat, SOB, cough, abdominal pain, N/V, dysuria, hematuria, myalgia, edema, rash, or dizziness. Pt was seen in [facility] on 03/10/2019 for a R hip dislocation. Her RLE is in a brace. She saw izzy Jaime, today who upon hearing about the CP, recommended she go to the ED for evaluation. She takes Coumadin and aspirin. Denies stents. She had an echo last month. - History Of Current Complaint Chief Complaint: EDChestPainROMI Time Seen by Provider: 03/20/19 17:00 Hx Obtained From: Patient Onset/Duration: Sudden Onset, Lasting Hours - yesterday, Still Present Timing: Intermittent, Lasting: Severity Currently: Severe - 7 out of 10 Severity Initially: Severe Character: Sharp Associated Signs And Symptoms: Positive: Chest Pain, Other - neg: chills, erythema of eyes, sore throat, hematuria, rash. Negative: Dizziness, SOB, Cough , Edema, Nausea, Vomiting, Diarrhea, Abdominal Pain, Back Pain, Dysuria, Fever - Allergies/Home Medications Allergies/Adverse Reactions: Allergies Allergy/AdvReac Type Severity Reaction Status Date / Time No Known Allergies Allergy Verified 03/20/19 16:55 PMH/Surg Hx/FS Hx/Imm Hx Previously Healthy: No Endocrine/Hematology History: Denies: Hx Anticoagulant Therapy Cardiovascular History: Reports: Hx Myocardial Infarction, Other Cardiovascular Problems/Disorders - Hx of Paroxysmal atrial fibrillation Denies: Hx Hypertension Respiratory History: Reports: Hx Pulmonary Embolism, Other Respiratory Problems/ Disorders - PE x2 (2001, 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 Infectious Disease History: No Infectious Disease History: Denies: Traveled Outside the [place] in Last 30 Days - Family History Known Family History: Positive: Cardiac Disease - Social History Occupation: Retired Lives: With Family Alcohol Use: Rare Hx Substance Use: No Substance Use Type: Reports: None Hx Tobacco Use: No Smoking Status (MU): Never Smoked Tobacco Review of Systems Negative: Fever, Chills Negative: Erythema Negative: Sore Throat Negative: Chest Pain Negative: Shortness Of Breath, Cough Negative: Abdominal Pain, Vomiting, Diarrhea, Nausea Negative: dysuria, hematuria Negative: Myalgia - neg: back pain, Edema Negative: Rash Neurological: Other - neg: dizziness All Other Systems Reviewed And Are Negative: Yes Physical Exam - Summary Physical Exam Summary: Constitutional: Well-developed, Well-nourished, Alert. (-) Distressed Skin: Warm, Dry HENT: Normocephalic; Atraumatic Eyes: Conjunctiva normal Neck: Musculoskeletal ROM normal neck. (-) JVD, (-) Stridor, (-) Tracheal deviation Cardio: Rhythm regular, rate normal, Heart sounds normal; Intact distal pulses; The pedal pulses are 2+ and symmetric. Radial pulses are 2+ and symmetric. (-) Murmur Pulmonary/Chest wall: Effort normal. (-) Respiratory distress, (-) Wheezes, (-) Rales Abd: Soft, (-) epigastric tenderness, (-) Distension, (-) Guarding, (-) Rebound Musculoskeletal: (-) Edema, RLE in knee immobilizer Lymph: (-) Cervical adenopathy Neuro: Alert, Oriented x3 Psych: Mood and affect Normal Triage Information Reviewed: Yes Vital Signs On Initial Exam: Initial Vitals Temp Pulse Resp BP Pulse Ox 97.8 F 79 16 139/69 96 03/20/19 16:50 03/20/19 16:50 03/20/19 16:50 03/20/19 16:50 03/20/19 16:50 Vital Signs Reviewed: Yes Diagnostics - Vital Signs Vital Signs Temp Pulse Resp BP Pulse Ox 03/20/19 16:50 97.8 F 79 16 139/69 96 - Laboratory Result Diagrams: 03/20/19 17:00 03/20/19 17:00 Lab Statement: Any lab studies that have been ordered have been reviewed, and results considered in the medical decision making process. - Radiology CXR Radiology Interpretation Completed By: Radiologist Summary of Radiographic Findings: IMPRESSION: #. Mild cardiomegaly and potential chronic obstructive pulmonary disease. No acute cardiopulmonary process evident. ED provider has reviewed this report. - EKG 1703 Cardiac Rate: NL - 71 bpm EKG Rhythm: Sinus Rhythm Summary of EKG Findings: No STEMI Complex Multi-Symp Course/Dx Assessment/Plan: Patient is a 78 y/o F with pert PMHx: PE x2 presents with intermittent, sharp, L-sided CP onset yesterday. The pain radiates across her diaphragm. RLE is in a brace after a R hip dislocation last week. EKG shows NSR at 71 bpm, no STEMI. CXR shows "Mild cardiomegaly and potential chronic obstructive pulmonary disease. No acute cardiopulmonary process evident.". Patient will be signed out to Dr. Fall at shift change pending CTA. Discharge - Sign-Out/Discharge Documenting (check all that apply): Sign-Out Patient Signing out patient TO: Cameron Fall - pending CTA Patient Received Moderate/Deep Sedation with Procedure: No - Discharge Plan Referrals: Yuan Pedroza MD [Primary Care Provider] - - Attestation Statements Document Initiated by Scribe: Yes Documenting Scribe: Jonh Helton Provider For Whom Scribe is Documenting (Include Credential): Dr. Julio Aquino MD Scribe Attestation: I, dasia Ma for Dr. Julio Aquino MD on 03/20/19 at 1820. Status of Scribe Document: Ready
[2019-03-20 17:44] LABS: ABS Basophils 0.1 10^3/ul (0-0.2); ABS Eosinophils 0.1 10^3/ul (0-0.6); ABS Lymphocytes 1.7 10^3/ul (1.0-4.8); ABS Monocytes 0.5 10^3/ul (0-0.8); ABS Neutrophils 4.7 10^3/ul (1.5-7.7); Eosinophil % 1.1 %; Hematocrit 33 % (35-47); Hemoglobin 11.1 g/dL (12.0-16.0); Lymphocyte % 24.2 %; Mean Corpuscular HGB Conc 33 g/dL (31-36); Mean Corpuscular Hemoglobin 32 pg (27-31); Mean Corpuscular Volume 95 fL (80-97); Mean Platelet Volume 7.1 fL (7.4-10.4); Platelet Count 267 10^3/uL (150-450); Red Blood Count 3.49 10^6 /uL (3.70-4.87); Red Cell Distribution Width 15 % (10.5-15)
[2019-03-20 18:08] LABS: Albumin 3.8 g/dL (3.2-5.2); Albumin/Globulin Ratio 1.4 (1-3); Calcium 9.2 mg/dL (8.6-10.3); Globulin 2.7 g/dL (2-4); Total Bilirubin 0.5 mg/dL (0.2-1.0); Total Protein 6.5 g/dL (6.4-8.9)
--- NOTE | 2019-03-20 18:31 | ED ---
Progress - Progress Note Progress Note: RECEIVING SIGN OUT FROM DR. AQUINO AT SHIFT CHANGE PENDING CTA. Chest/Thorax Impression: 1. No acute findings. No evidence of pulmonary embolus. 2. Mild cardiomegaly. Coronary artery disease. 3. Status post left mastectomy and axillary lymph node dissection. 4. Large hiatal hernia. 5. Numerous low-density hepatic lesions again noted, largest measuring 1.3 cm, consistent with a cyst. Others are too small to characterize but are unchanged since prior CT. 6. Thyromegaly, stable. She is diagnosed with non-cardiac chest pain. She will be discharged home with follow up with PCP. She agrees with this plan and understands the need for return to the ED for any new or worsening symptoms. - Results/Orders Results/Orders: Chest/Thorax CTA: 1. No acute findings. No evidence of pulmonary embolus. 2. Mild cardiomegaly. Coronary artery disease. 3. Status post left mastectomy and axillary lymph node dissection. 4. Large hiatal hernia. 5. Numerous low-density hepatic lesions again noted, largest measuring 1.3 cm, consistent with a cyst. Others are too small to characterize but are unchanged since prior CT. 6. Thyromegaly, stable. ED physician has reviewed this radiology report. Course/Dx - Course Course Of Treatment: RECEIVING SIGN OUT FROM DR. AQUINO AT SHIFT CHANGE PENDING CTA. Chest/Thorax Impression: 1. No acute findings. No evidence of pulmonary embolus. 2. Mild cardiomegaly. Coronary artery disease. 3. Status post left mastectomy and axillary lymph node dissection. 4. Large hiatal hernia. 5. Numerous low-density hepatic lesions again noted, largest measuring 1.3 cm, consistent with a cyst. Others are too small to characterize but are unchanged since prior CT. 6. Thyromegaly, stable. She is diagnosed with non-cardiac chest pain. She will be discharged home with follow up with PCP. She agrees with this plan and understands the need for return to the ED for any new or worsening symptoms. - Diagnoses Provider Diagnoses: Non-cardiac chest pain Discharge - Sign-Out/Discharge Documenting (check all that apply): Patient Departure - Patient will be discharged home., Receiving Sign-Out Receiving patient FROM: Julio Aquino - pending CTA Patient Received Moderate/Deep Sedation with Procedure: No - Discharge Plan Condition: Good Disposition: HOME Patient Education Materials: Noncardiac Chest Pain (ED) Referrals: Yuan Pedroza MD [Primary Care Provider] - 3 Days Additional Instructions: Your CT scan did not any sign of a blood clot in the lungs. The other tests we ran did not show any acute problem with the heart or any other dangerous condition, so it is safe for you to be discharged and followup with your regular provider. RETURN TO THE EMERGENCY DEPARTMENT FOR ANY NEW OR WORSENING SYMPTOMS. - Billing Disposition and Condition Condition: GOOD Disposition: Home - Attestation Statements Document Initiated by Vanda: Yes Documenting Scribe: Jonh Helton Provider For Whom Vanda is Documenting (Include Credential): Dr. Cameron Fall MD Scribe Attestation: I, Jonh Helton, scribed for Dr. Cameron Fall MD on 03/22/19 at 0441. Scribe Documentation Reviewed: Yes Provider Attestation: The documentation as recorded by the Jonh nye accurately reflects the service I personally performed and the decisions made by me, Dr. Cameron Fall MD Status of Scribe Document: Viewed
[2019-03-20 18:35] LABS: EGFR African American 74.2 (>60); EGFR Non-African American 61.3 (>60)
[2019-03-20] MEDS ORDERED: Iohexol 350* (CONTRAST) 500 ML MDV IV ONE (18:40)
[2019-03-20 21:23] VITALS: BP 140/72
== END 2019-03-20 21:22 | disposition home or self-care (01) ==
LOC: ED 16:46
DX: R07.89 Other chest pain (principal); I51.7 Cardiomegaly; K44.9 Diaphragmatic hernia without obstruction or gangrene; K76.9 Liver disease, unspecified; E01.0 Iodine-deficiency related diffuse (endemic) goiter; R94.31 Abnormal electrocardiogram [ECG] [EKG]; I25.2 Old myocardial infarction; I48.0 Paroxysmal atrial fibrillation; Z86.711 Personal history of pulmonary embolism; Z79.01 Long term (current) use of anticoagulants; Z79.82 Long term (current) use of aspirin; Z90.12 Acquired absence of left breast and nipple
CPT/HCPCS: 36415; 71045; 71275; 80053; 83605; 84484; 85025; 93005; 99284; Q9967

== ENCOUNTER 2024-05-07 14:30 | Inpatient (IN) ==
[2024-05-07] MEDS: Ondansetron 4 mg VIAL 2 MG/ML 2 ml VIAL IV ONE (15:52)
[2024-05-07 16:03] LABS: ABS Basophils 0.1 10^3/uL (0.0-0.1); ABS Nucleated RBC 0.01 10^3/ul; Eosinophil % 0.1 %; Hematocrit 30.8 % (35-45); Hemoglobin 10.3 g/dL (11.5-14.3); Lymphocyte % 6.2 %; Mean Corpuscular Hemoglobin 32.5 pg (27-33); Mean Corpuscular Hgb Conc 33.5 g/dL (31-36); Mean Corpuscular Volume 97.1 fL (80-97); Mean Platelet Volume 6.9 fL (7.5-11.2); Platelet Count 255 10^3/uL (150-450); Red Blood Count 3.18 10^6/uL (3.63-4.92); Red Cell Distribution Width 16.4 % (12-17); White Blood Count 16.2 10^3/uL (3.8-11.8)
[2024-05-07 17:24] LABS: Albumin 2.3 g/dL (3.2-5.2); Albumin/Globulin Ratio 1.2 (1-3); C Reactive Protein 33.13 mg/L (<8.01); Calcium 6.2 mg/dL (8.6-10.3); Creatinine, Serum 0.43 mg/dL (0.51-0.95); Potassium 2.7 mmol/L (3.5-5.0); Total Bilirubin 0.5 mg/dL (0.2-1.0); Total Protein 4.3 g/dL (6.4-8.9); eGFR CKD-EPI 96.4 (>60)
[2024-05-07] MEDS: KCL 20 MEQ/100 ML IVPREMIX 20 MEQ/100 ML BAG IV SCH (18:21)
[2024-05-07] MEDS: CALCIUM GLUCONATE 1GM/50ML NS 1 GM/50 ML BAG IV ONE (18:22)
[2024-05-07] MEDS: Iohexol 300 (CONTRAST) 10 ML SDV IV ONE (19:26)
[2024-05-07 20:15] LABS: Albumin 2.4 g/dL (3.2-5.2); Albumin/Globulin Ratio 1.3 (1-3); Calcium 17.6 mg/dL (8.6-10.3); Creatinine, Serum 0.52 mg/dL (0.51-0.95); Globulin 1.9 g/dL (2-4); Potassium 3.5 mmol/L (3.5-5.0); Total Bilirubin 0.5 mg/dL (0.2-1.0); Total Protein 4.3 g/dL (6.4-8.9); eGFR CKD-EPI 92.1 (>60)
[2024-05-07] MEDS: Piperacillin/Tazobac 3.375 BAG 3.375 GM/100 ML BAG IV ONE (21:20)
[2024-05-08] MEDS: Enoxaparin 40 MG/0.4 ML SYR SUBCUT SCH (00:44)
[2024-05-08] MEDS: Lactated Ringers 1000 ml BAG 1,000 ML IV SCH (00:45)
[2024-05-08] MEDS: CMCS: Anastrozole 1 mg TAB (NF) PO SCH (07:53)
[2024-05-08] MEDS: cefTRIAXone 1 gm/50 mL D5W 1 GM/50 ML BAG IV SCH (07:55)
[2024-05-08] MEDS: CMCS: Budesonide 3 mg CAP (NF) PO SCH (07:55)
[2024-05-08 08:08] LABS: ABS Basophils 0.1 10^3/uL (0.0-0.1); ABS Eosinophils 0.1 10^3/uL (0.0-0.5); ABS Lymphocytes 1.4 10^3/uL (1.0-4.8); ABS Neutrophils 11.9 10^3/uL (1.5-7.6); ABS Nucleated RBC 0.01 10^3/ul; Eosinophil % 0.5 %; Hematocrit 28.4 % (35-45); Hemoglobin 9.6 g/dL (11.5-14.3); Lymphocyte % 9.7 %; Mean Corpuscular Hemoglobin 32.9 pg (27-33); Mean Corpuscular Hgb Conc 33.9 g/dL (31-36); Mean Corpuscular Volume 97.2 fL (80-97); Mean Platelet Volume 7.2 fL (7.5-11.2); Platelet Count 236 10^3/uL (150-450); Red Blood Count 2.92 10^6/uL (3.63-4.92); Red Cell Distribution Width 16.8 % (12-17); White Blood Count 14.5 10^3/uL (3.8-11.8)
[2024-05-08] MEDS: metroNIDAZOLE IV 500 MG/100ML 500 MG/100 ML BAG IVPB SCH (08:59)
[2024-05-08] MEDS ORDERED: Aspirin EC 81 mg TAB.EC (enteric coated) PO SCH (09:00)
[2024-05-08 10:25] LABS: Calcium 8.2 mg/dL (8.6-10.3); Creatinine, Serum 0.64 mg/dL (0.51-0.95); Potassium 4.1 mmol/L (3.5-5.0); eGFR CKD-EPI 87.6 (>60)
[2024-05-09 08:36] LABS: ABS Eosinophils 0.1 10^3/uL (0.0-0.5); ABS Monocytes 0.7 10^3/uL (0.0-0.9); ABS Neutrophils 8.9 10^3/uL (1.5-7.6); Eosinophil % 0.7 %; Hematocrit 30.2 % (35-45); Hemoglobin 10.2 g/dL (11.5-14.3); Lymphocyte % 9.5 %; Mean Corpuscular Hemoglobin 32.6 pg (27-33); Mean Corpuscular Hgb Conc 33.6 g/dL (31-36); Mean Platelet Volume 6.9 fL (7.5-11.2); Platelet Count 258 10^3/uL (150-450); Red Blood Count 3.11 10^6/uL (3.63-4.92); Red Cell Distribution Width 16.6 % (12-17); White Blood Count 10.7 10^3/uL (3.8-11.8)
[2024-05-09] MEDS ORDERED: Anastrozole 1 mg TAB (NF) PO SCH (09:00)
[2024-05-09 09:50] LABS: Calcium 8.1 mg/dL (8.6-10.3); Creatinine, Serum 0.54 mg/dL (0.51-0.95); Potassium 3.6 mmol/L (3.5-5.0); eGFR CKD-EPI 91.3 (>60)
[2024-05-09] MEDS: CMC:Budesonide 3 mg CAP (NF) PO SCH (09:54)
[2024-05-09 15:24] LABS: C Reactive Protein 249.14 mg/L (<8.01)
[2024-05-10 05:38] LABS: ABS Lymphocytes 1.1 10^3/uL (1.0-4.8); ABS Monocytes 0.7 10^3/uL (0.0-0.9); Eosinophil % 0.5 %; Hematocrit 27.6 % (35-45); Hemoglobin 9.3 g/dL (11.5-14.3); Mean Corpuscular Hemoglobin 32.1 pg (27-33); Mean Corpuscular Hgb Conc 33.5 g/dL (31-36); Mean Corpuscular Volume 95.8 fL (80-97); Mean Platelet Volume 6.9 fL (7.5-11.2); Platelet Count 244 10^3/uL (150-450); Red Blood Count 2.88 10^6/uL (3.63-4.92); Red Cell Distribution Width 16.3 % (12-17); White Blood Count 7.8 10^3/uL (3.8-11.8)
[2024-05-10 06:04] LABS: Calcium 8.1 mg/dL (8.6-10.3); Creatinine, Serum 0.61 mg/dL (0.51-0.95); eGFR CKD-EPI 88.7 (>60)
[2024-05-10 10:19] VITALS: BP 130/75
== END 2024-05-10 13:35 | disposition home or self-care (01) | DRG 392 ==
LOC: EDHOLD 14:30 → ED 14:30 → OBSVTOIN 21:15 → SUATTDRO 21:15 → INTOOBSV 21:15 → MED 05-08 17:34
PROVIDERS: ADMIT Internal Medicine; ATTEND Internal Medicine